=== PATIENT | female | born 1940 | race Caucasian/White ===

== ENCOUNTER → 2016-05-01 | Outpatient (CLI) | payer OTHER ==
[~2016-05-01] VITALS: Ht 152.4 cm; Wt 69.5 kg
[~2016-05-01] MED LIST: ALEVE220 MG PO; ARMOUR THYROID90 M1 PO; ASPIR-TRIN325 MG PO; ASPIRIN325 PO; B COMPLEX1 EAC1 PO; B-COMPLEX PLUS1 EACH PO; BACTROBAN CREAM30 G1 TOP; BIOTIN1 MG PO; BIOTIN10000 MC1 PO; BIOTIN2500 MCG PO; COLACE 100 MG100 MG PO; IBUPROFEN 200200 M1 PO; IRON325 PO; MIRALAX17 G1 PO; PERCOCET 10-321 EACH PO; PERCOCET PO; SENNA LAXATIVE1 EACH PO; STOOL SOFTENER100 MG PO; VITAMIN B-6100 MG PO; VITAMIN D1000 UNI1 PO; VITAMIN D31000 UNI2 PO; XARELTO10 MG PO; [UNRECOGNIZED DRUG - OTHER] PO
--- NOTE | ~2016-05-01 | HPC ---
[facility] [place] [address] PAIN MANAGEMENT CONSULTATION Name: LAYO AKERS Room #: REG [facility].#: [id number] Admission: 05/01/16 Attend Phys: Rajinder Ponce DO Discharge: Date of : 39 Report #: [id number] THIS REPORT FOR: //name// CC: Darcie Ponce The patient is a very pleasant 75-year-old female, being treated for lumbar radiculopathy secondary to spinal stenosis. She has had typically good relief with epidural injections. In 2015, she had had midline injection in February and again in December. Last injection was 01/17/2016. The patient returns to pain clinic today noting that those injections afforded good relief (specifically noting 50% relief ongoing), but states she still has more left lumbar radicular pain at this point. Right hip pain is little problematic. She notes pain is 6-7/10, deep aching sensation, exacerbated with walking and standing. PHYSICAL EXAMINATION: Shows a 75-year-old female, BMI is 29.9 kilograms per meter squared. Vital signs are stable, as noted in the EMR. Lower extremity strength is generally symmetric. She rises from the chair using armrest, modestly antalgic gait, actually does have positive straight leg raise on the right. We reviewed her diagnostic findings including MRI of the lumbar spine from March of 2014, noting L4-L5 to have grade 1 anterolisthesis with severe spinal stenosis and L5-S1 to have left-sided degenerative changes, and fairly severe right neural foraminal narrowing. ASSESSMENT: Symptomatic lumbar radiculopathy secondary to spinal stenosis. RECOMMENDATIONS: Repeat epidural injection under fluoroscopy today at L5-S1. Follow up simply as needed. At some point, if symptoms do not continue to get reasonable relief with the injection, we may consider referral for interventional therapy, i.e., decompressive laminectomy. PROCEDURE NOTE: Lumbar epidural injection under fluoroscopy. DESCRIPTION OF PROCEDURE: After both written and informed consent to include risk of spinal cord damage, increased pain, weakness and dural puncture, the patient was taken to the fluoroscopy suite, placed in the prone position. After sterile prep and drape, a skin wheal with lidocaine was raised. A 22-gauge epidural Tuohy needle was inserted in the midline at L5-S1 with good loss to resistance. Negative aspiration for cerebrospinal fluid or blood was noted. Then 1 mL of Omnipaque under biplanar fluoroscopy showed good spread within the epidural space. This was followed with 80 mg of triamcinolone plus 1 mL of 1.5% preservative-free Xylocaine, 0.5 mL Xylocaine was then injected to flush the [address] [address] PAIN MANAGEMENT CONSULTATION Name: LAYO AKERS Room #: REG [facility]#: [id number] Admission: 05/01/16 Attend Phys: Rajinder Ponce DO Discharge: Date of : 39 Report #: [id number] needle; it was removed. The patient was monitored for an appropriate period of time and discharged in good and stable condition. <ELECTRONICALLY SIGNED> By: Rajinder Ponce DO 05/04/16 1130 1034 1132 Rajinder Ponce DO /nt
[2016-05-01 13:08] VITALS: BP 143/83
== END | disposition home or self-care (01) ==
LOC: PAIN 07:05
DX: M54.16 Radiculopathy, lumbar region (principal); M43.16 Spondylolisthesis, lumbar region; M48.06 Spinal stenosis, lumbar region

== ENCOUNTER → 2016-07-23 | Outpatient (CLI) | payer OTHER ==
[~2016-07-23] VITALS: Ht 152.4 cm; Wt 68.5 kg
[~2016-07-23] MED LIST changes: +PERCOCET 5-3251 EACH PO
--- NOTE | ~2016-07-23 | HPC ---
[facility] [place] [address] PAIN MANAGEMENT CONSULTATION Name: LAYO AKERS Room #: REG [facility].#: [id number] Admission: 07/23/16 Attend Phys: Rajinder Ponce DO Discharge: Date of : 39 Report #: [id number] THIS REPORT FOR: //name// CC: Darcie Ponce HISTORY OF PRESENT ILLNESS: The patient is a 75-year-old female, who had a lumbar epidural injection at L5-S1 with significant improvement of baseline pain for several months. The patient notes the pain has recurred, right hip radiating down to the calf. MRI from March of 2014 notes severe spinal stenosis at L4-L5 with anterolisthesis and right neural foraminal stenosis at L5-S1. The patient notes subjective pain score as 9/10, exacerbated with walking and standing. He takes Advil over the counter. He has taken Percocet in the past, given to her prior to surgery. This has been quite some time ago. She used 1-2 Percocet with efficacy recently. PHYSICAL EXAMINATION: Shows a 75-year-old female, BMI is 29.5 kilograms per meter squared. Blood pressure 151/81, pulse 87, respirations are 14. Alert and oriented to person, place and time, judged to be a reasonable historian. Rises from the chair using armrest, modestly antalgic gait, tenderness over the right buttock. There are no discrete trigger points noted. Slight decrease in right plantar flexion and lower extremity flexion strength. Positive straight leg raise on the right, though somewhat nominal at 30 degrees. Patellar reflexes are symmetric. Achilles reflex is slightly diminished on the right. Skin integument is intact. MRI from March as noted above. ASSESSMENT: Symptomatic lumbar radiculopathy, secondary to spinal stenosis. RECOMMENDATIONS: Long discussion with the patient today about therapeutic options. Ultimately, given the fact she has had good yet transient relief with epidural injections, we have elected to refer the patient for consideration for definitive surgical intervention. The patient would prefer to have surgery at [facility] [place]. I will refer her to Dr. Indra Pereira. Today, we elected to proceed with epidural injection under fluoroscopy today to help attenuate her "9" on a 0-10 visual analog scale pain score. I have also taken the liberty of writing for Percocet 5/325, dispense 30 tablets 1 q. 4-6 hours as needed for pain. The patient cautioned about daytime somnolence, mental acuity changes, and constipation. Next, we ordered an MRI. Given that her prior MRI is little greater than 2 years old. ASSESSMENT: Symptomatic lumbar radiculopathy secondary to spinal stenosis in a pleasant 75-year-old female, who has had prior [place] [address] PAIN MANAGEMENT CONSULTATION Name: LAYO AKERS Room #: REG [facility]#: [id number] Admission: 07/23/16 Attend Phys: Rajinder Ponce DO Discharge: Date of : 39 Report #: [id number] injections, but pain is recurring, interfering with function. She has otherwise reasonably healthy. She should be a good surgical candidate. Comorbidities include only history of hypothyroidism. PROCEDURE: Lumbar epidural injection under fluoroscopy. DESCRIPTION OF PROCEDURE: After both written and informed consent to include risk of spinal cord damage, increased pain, weakness and dural puncture, the patient was taken to the fluoroscopy suite, placed in the prone position. After sterile prep and drape, a skin wheal with lidocaine was raised. A 22-gauge epidural Tuohy needle was inserted in the midline at L5-S1 with good loss to resistance. Negative aspiration for cerebrospinal fluid or blood was noted. Then 1 mL of Omnipaque under biplanar fluoroscopy showed good spread within the epidural space. This was followed with 80 mg of triamcinolone plus 1 mL of 1.5% preservative-free Xylocaine, 0.5 mL Xylocaine was then injected to flush the needle; it was removed. The patient was monitored for an appropriate period of time and discharged in good and stable condition. <ELECTRONICALLY SIGNED> By: Rajinder Ponce DO 07/27/16 0856 1204 1702 Rajinder Ponce DO /nt
[2016-07-23 10:55] VITALS: BP 151/81
== END | disposition home or self-care (01) ==
LOC: PAIN 06:41
DX: M54.16 Radiculopathy, lumbar region (principal); M48.06 Spinal stenosis, lumbar region; Z87.891 Personal history of nicotine dependence

== ENCOUNTER → 2016-10-26 | Outpatient (CLI) | payer OTHER ==
[~2016-10-26] VITALS: Ht 160 cm; Wt 68.4 kg
--- NOTE | ~2016-10-26 | HPC ---
[facility] [place] [address] PAIN MANAGEMENT CONSULTATION Name: LAYO AKERS Room #: REG [facility]..#: [id number] Admission: 10/26/16 Attend Phys: Rajinder Ponce DO Discharge: Date of : 39 Report #: [id number] THIS REPORT FOR: //name// CC: Darcie Ponce The patient is a delightful 76-year-old female that I have treated for symptomatic lumbar radiculopathy since 02/2015. She had 4 lumbar epidural injections from 02/2015 to 01/2016. She had 2 injections in 2017, 05/01/2016 and 07/23/2016. Last injection was a right of midline injection at L5-S1 with excellent near 100% improvement of pain. Pain has gradually begun to recur. The patient had a garage sale last week, for the prior 3 weeks she had been doing fair bit of physical activity in the garage, increasing activity with exacerbation of pain. She notes the pain was quite problematic on the right, they graded a 9 on a VAS when she made the appointment. She notes, however, that pain is actually fairly nominal at present, rates it 2 on a VAS. It is right low back, buttock, and leg; exacerbated with standing, walking and bending. She has taken perhaps 3 Percocet 5/325 in the past 3 weeks, prior she had not taken any for several months. She has been using Advil [id number] 200 mg tablets, 2 every morning with reasonable efficacy in the past several weeks. Presently again, she notes pain is fairly nominal. PHYSICAL EXAMINATION: GENERAL: Shows 76-year-old female, BMI is 26.7 kilograms per meter square. VITAL SIGNS: Blood pressure 131/92, pulse 72, respirations 16. MUSCULOSKELETAL: Rises from chair easily. Gait is tandem. Lower extremity strength is preserved. Lower extremity strength is symmetric. Straight leg raise is negative. Patellar and Achilles reflexes are generally preserved. IMAGING: Reviewed her MRI from 03/14/2014. The patient does have severe right neural foraminal narrowing secondary to facet arthropathy at L5-S1. She has a grade 1 anterolisthesis at L4-L5 with severe central stenosis. RECOMMENDATION: Discussion with the patient today about therapeutic options. I had suggested she contact a neurosurgeon at last visit. I still think that would be reasonable if pain becomes problematic again. However, it really seems to be fairly nominal at present. Given that she is doing well with simply a nonsteroidal anti-inflammatory, I would recommend that she continue activity. We talked about range of motion and strength exercises. I will be happy to see her as-needed for consideration for lumbar epidural injection if lumbar radicular symptoms recur, primarily in that right leg. If single injection does not afford adequate relief, we may want to get a newer MRI and refer to Neurosurgery. Again, this does not necessarily mean she will have surgery, but I do want to make her to be aware of Neurosurgery and neurosurgical options. [address] [address] PAIN MANAGEMENT CONSULTATION Name: LAYO AKERS Room #: REG [facility]#: [id number] Admission: 10/26/16 Attend Phys: Rajinder Ponce DO Discharge: Date of : 39 Report #: [id number] Discharged in good and stable condition. Fortunately, no interventional therapies required at this time. By: [id number] Rajinder Ponce DO /nt
[2016-10-26 15:13] VITALS: BP 131/92
== END | disposition home or self-care (01) ==
LOC: PAIN 08-06 08:43
DX: M54.16 Radiculopathy, lumbar region (principal); M12.88 Other specific arthropathies, not elsewhere classified, other specified site; Z87.891 Personal history of nicotine dependence

== ENCOUNTER → 2016-12-21 | Outpatient (CLI) | payer OTHER ==
[~2016-12-21] VITALS: Ht 152.4 cm; Wt 66.2 kg
--- NOTE | ~2016-12-21 | HPC ---
[facility] [place] [address] PAIN MANAGEMENT CONSULTATION Name: LAYO AKERS [facility] [id number] Admission: 12/21/16 Attend Phys: Rajinder Ponce DO Discharge: Date of : 39 Report #: [id number] THIS REPORT FOR: //name// CC: Darcie Ponce The patient is a 76-year-old female, prior seen in the pain clinic on 10/26/2016. The patient has had good results with epidural injections in the past, prior injection in April and July of this year helped with radicular pain. At last visit, we reviewed her diagnostic findings, suggested she contact her neurosurgeon. She returns to pain clinic today noting pain has begun to recur. Pain is in the right hip, posterior side. States it does impact activities of daily living. She has fairly classic neurogenic claudication with ambulation. MRI did note spinal stenosis. We had again recommend she follow up with neurosurgery. I gave her contact information for Dr. Indra Pereira as she states she would like to have her surgery at [facility]. I reviewed the prior MR findings from 2014, again at that time she did have critical spinal stenosis at L4-L5. We have elected to Repeat MRI, proceed with epidural injection today and have her follow up with Dr. Pereira for consideration for decompressive laminectomy. ASSESSMENT: Symptomatic lumbar radiculopathy secondary to spinal stenosis with positive neural tensioning symptoms and neurogenic claudication. PROCEDURE: Lumbar epidural injection under fluoroscopy. PROCEDURE NOTE: After both written and informed consent to include risk of spinal cord damage, increased pain, weakness and dural puncture, the patient was taken to the fluoroscopy suite, placed in the prone position. After sterile prep and drape, a skin wheal with lidocaine was raised. A 22-gauge epidural Tuohy needle was inserted in the midline at L5-S1 with good loss to resistance. Negative aspiration for cerebrospinal fluid or blood was noted. Then 1 mL of Omnipaque under biplanar fluoroscopy showed good spread within the epidural space. This was followed with 80 mg of triamcinolone plus 1 mL of 1.5% preservative-free Xylocaine, 0.5 mL Xylocaine was then injected to flush the needle; it was removed. The patient was monitored for an appropriate period of time and discharged in good and stable condition. <ELECTRONICALLY SIGNED> By: Rajinder Ponce DO 12/28/16 1401 1657 2101 Rajinder Ponce DO /nt
[2016-12-21 12:51] VITALS: BP 152/76
== END | disposition home or self-care (01) ==
LOC: PAIN 06:20
DX: M54.16 Radiculopathy, lumbar region (principal); M48.062 Spinal stenosis, lumbar region with neurogenic claudication; Z98.890 Other specified postprocedural states; Z87.891 Personal history of nicotine dependence

== ENCOUNTER → 2016-12-29 | Outpatient (CLI) | payer OTHER | LOC: MRI 10:38 | DX: M47.896 Other spondylosis, lumbar region (principal); M48.061 Spinal stenosis, lumbar region without neurogenic claudication ==

== ENCOUNTER → 2017-04-09 | Outpatient (CLI) | payer OTHER ==
[~2017-04-09] VITALS: Ht 152.4 cm; Wt 65.7 kg
--- NOTE | ~2017-04-09 | HPC ---
[facility] [place] [address] PAIN MANAGEMENT CONSULTATION Name: LAYO AEKRS [facility] [id number] Admission: 04/09/17 Attend Phys: Rajinder Ponce DO Discharge: Date of : 39 Report #: [id number] THIS REPORT FOR: //name// CC: Darcie Ponce DATE OF SERVICE: 04/09/2017 The patient is a 76-year-old female being treated for lumbar radiculopathy secondary to spinal stenosis. Prior seen in the Pain Clinic back in December. We did an epidural injection at that time. I referred her to Dr. Indra Pereira at [facility] for consideration for decompressive laminectomy. She has fairly significant lumbar stenosis, greatest at L1-L2 and at L4-L5. There are severe facet arthrosis and grade 1 anterolisthesis at L4-L5 along with some ligamentum flavum hypertrophy. Canals narrowed to 6.5 mm. The patient did see Dr. Pereira, but has a followup appointment with another neurosurgeon in that group. By reports, the patient had flexion and extension x-rays, which may have showed some malalignment and movement with flexion and extension and I believe they are now discussing consideration for a lumbar fusion. She notes that the prior epidural injection afforded good relief, albeit transient. The patient noted she had 60% relief for 2 months and pain has begun to recur. PHYSICAL EXAMINATION: Shows 76-year-old female, BMI is 28.3 kg/m2, blood pressure is modestly elevated at 147/90, pulse 89, respirations are 20. Rises from chair using armrest. Antalgic gait favoring the right leg. Positive straight leg raise on the right with slight decreased right plantar flexion, dorsiflexion, and lower extremity extension. I did review the MRI from 12/29/2016 noting grade 1 anterolisthesis at L4-L5 and has noted significant stenosis down to 6.5 mm. ASSESSMENT: Symptomatic lumbar radiculopathy secondary to spinal stenosis. RECOMMENDATION: 1. Repeat epidural injection at L5-S1. 2. Chronic axial back pain and complex medication management. We will renew prescription for Percocet 5/325, dispense 40 tablets, one tablet q. 4-6 hours. 3. Follow up simply as needed. PROCEDURE: Lumbar epidural injection under fluoroscopy. PROCEDURE NOTE: After both written and informed consent to include risk of spinal cord damage, increased pain, weakness and dural puncture, the patient was taken to the fluoroscopy suite, placed in the prone position. After sterile [address] [address] PAIN MANAGEMENT CONSULTATION Name: LAYO AKERS Room #: REG [facility] Rod#: [id number] Admission: 04/09/17 Attend Phys: Rajinder Ponce DO Discharge: Date of : 39 Report #: [id number] prep and drape, a skin wheal with lidocaine was raised. A 22-gauge epidural Tuohy needle was inserted in the midline at L5-S1 with good loss to resistance. Negative aspiration for cerebrospinal fluid or blood was noted. Then 1 mL of Omnipaque under biplanar fluoroscopy showed good spread within the epidural space. This was followed with 80 mg of triamcinolone plus 1 mL of 1.5% preservative-free Xylocaine, 0.5 mL Xylocaine was then injected to flush the needle; it was removed. The patient was monitored for an appropriate period of time and discharged in good and stable condition. <ELECTRONICALLY SIGNED> By: Rajinder Ponce DO 04/12/17 0925 1223 1733 Rajinder Ponce DO /nt
[2017-04-09 10:47] VITALS: BP 147/98
== END | disposition home or self-care (01) ==
LOC: PAIN 07:11
DX: M54.16 Radiculopathy, lumbar region (principal); M48.061 Spinal stenosis, lumbar region without neurogenic claudication; G89.29 Other chronic pain; Z87.891 Personal history of nicotine dependence

== ENCOUNTER → 2017-07-02 | Outpatient (CLI) | payer OTHER ==
[~2017-07-02] VITALS: Ht 152.4 cm; Wt 64.9 kg
--- NOTE | ~2017-07-02 | HPC ---
[facility] [address] [address] [place] [address] PAIN MANAGEMENT CONSULTATION Name: AKERSLAYO ROJASNE Room #: REG [facility] Loretta.#: [id number] Admission: 07/02/17 Attend Phys: Rajinder Ponce DO Discharge: Date of : 39 Report #: [id number] THIS REPORT FOR: //name// CC: Darcie Ponce The patient is a very pleasant 76-year-old female typically treated for lumbar radiculopathy secondary to spinal stenosis with significant neurogenic claudication. She has done well with occasional epidural injections, last injection was 04/09/2017. Prior, she had had 4 lumbar epidural injections in 2016, April, July, October and December. I have referred the patient to [facility] to see Dr. Indra Pereira for consideration for decompression of her fairly significant spinal stenosis. She does have anterolisthesis about 6.5 mm at L4-L5. Canal is narrowed to about 6-6.5 mm at this level as well. They had done flexion and extension x-rays, which showed some malalignment and had suggested that if she needed surgery, they would recommend a lumbar decompression and fusion. They also said in the same breath that surgery was not a good option at this time for the patient and they would prefer that she continue with conservative therapies. She does present to the pain clinic today noting pain is actually fairly nominal about 2 on a VAS, but it had been quite problematic earlier in the week. She notes the pain is exacerbated with standing, walking and bending. Pain is primarily in the low back. She is status post right total hip arthroplasty in 09/2015 and left total hip arthroplasty in 10/2014. She has rehabbed both of those but still feels that she has a little weakness on the right side. She has some classic right L4 radicular pain symptoms. PHYSICAL EXAMINATION: Shows a pleasant 76-year-old female, BMI is 28.3 kilograms per meter squared. Vital signs show modest hypertension at 147/98, pulse wnl, respirations 20. She is alert and oriented to person, place and time, judged to be a reasonable historian. Rises from chair using armrest. Gait is generally tandem, her gait belies her total hip arthroplasties. She does have some diffuse tenderness across the low back, modestly positive straight leg raise on the right with slight decreased right patellar reflex compared to left. By history, she has significant neurogenic claudication with activity, with pain in the right L4 radicular pattern. She again does have fairly significant stenosis and spondylosis at this level. ASSESSMENT: Symptomatic lumbar radiculopathy secondary to spinal stenosis. [address] [address] PAIN MANAGEMENT CONSULTATION Name: DELPHINELAYO YONATHAN Room #: REG [facility] Rod#: [id number] Admission: 07/02/17 Attend Phys: Rajinder Ponce DO Discharge: Date of : 39 Report #: [id number] RECOMMENDATION: Long discussion with the patient today about therapeutic options. We have elected to simply repeat epidural injection today below the spondylolisthesis (LESI at L5-S1). The patient will simply follow up on an as needed basis. Again, if she does well with this injection, we talked at length about the risks of accumulated steroid use and osteoporosis. She does not have any metabolic issues such as diabetes. Given that she gets good relief, I agree that postponing decompressive laminectomy and fusion is reasonable. Hopefully, this will not be an inevitable surgery if we can continue to keep her functional. I told her I am leaving the practice and she will need to follow up with one of the pain clinic physicians. She has several friends who have seen Dr. Ryland Ponce and she was enthusiastic to see my "brother." ASSESSMENT: Symptomatic lumbar radiculopathy secondary to spinal stenosis. PROCEDURE: Lumbar epidural injection under fluoroscopy. PROCEDURE NOTE: After both written and informed consent to include risk of spinal cord damage, increased pain, weakness and dural puncture, the patient was taken to the fluoroscopy suite, placed in the prone position. After sterile prep and drape, a skin wheal with lidocaine was raised. A 22-gauge epidural Tuohy needle was inserted in the midline at L5-S1 with good loss to resistance. Negative aspiration for cerebrospinal fluid or blood was noted. Then 1 mL of Omnipaque under biplanar fluoroscopy showed good spread within the epidural space. This was followed with 80 mg of triamcinolone plus 1 mL of 1.5% preservative-free Xylocaine, 0.5 mL Xylocaine was then injected to flush the needle; it was removed. The patient was monitored for an appropriate period of time and discharged in good and stable condition. <ELECTRONICALLY SIGNED> By: Rajinder Ponce DO 07/07/17 0725 1524 00 Rajinder Ponce DO /nt
[2017-07-02 14:03] VITALS: BP 149/84
== END | disposition home or self-care (01) ==
LOC: PAIN 08:19
DX: M48.062 Spinal stenosis, lumbar region with neurogenic claudication (principal); M54.16 Radiculopathy, lumbar region; G89.29 Other chronic pain; Z96.641 Presence of right artificial hip joint; Z98.890 Other specified postprocedural states; Z87.891 Personal history of nicotine dependence; Z88.8 Allergy status to other drugs, medicaments and biological substances; Z79.891 Long term (current) use of opiate analgesic

== ENCOUNTER → 2017-08-20 | Outpatient (CLI) | payer OTHER ==
[~2017-08-20] VITALS: Ht 152.4 cm; Wt 60.0 kg
--- NOTE | ~2017-08-20 | HPC ---
[facility] [address] [address] PAIN MANAGEMENT CONSULTATION Name: LAYO AKERS [id number] Admission: 08/20/17 Attend Phys: Rajinder Ponce DO Discharge: Date of : 39 Report #: [id number] THIS REPORT FOR: //name// CC: Darcie Ponce DATE OF SERVICE: 08/20/2017 PAIN CLINIC PROCEDURE HISTORY OF PRESENT ILLNESS: The patient is a pleasant 76-year-old female treated for symptomatic lumbar radiculopathy secondary to spinal stenosis. She is status post bilateral total hip arthroplasties. She has ongoing stenosis. MRI shows AP diameter at L4-L5 down about 6.5 mm. Unfortunately, flexion, extension x-rays do show some malalignment. Surgery was recommended as a fusion. The patient would prefer conservative therapy. She has done well with occasional epidural injections. She has had epidural injections in April and in June of this year, always with good improvement (last injection the patient reports 70% for about a month with gradual return of pain). He returns to pain clinic today noting subjective pain score is 6 on a VAS. Pain is primarily low back and right leg. Exacerbated with standing, walking, leaning forward. Some relief with Advil and rest. PHYSICAL EXAMINATION: Otherwise shows BMI 25.8 kilograms per meter squared. Blood pressure is stable. The patient is alert and oriented to person, place, and time, judged to be a reasonable historian. Rises from chair using armrest, modestly antalgic gait. Right leg is a little weaker than the left. Positive straight leg raise on the right. ASSESSMENT: Symptomatic lumbar radiculopathy secondary to spinal stenosis. The patient with component of neuropathic pain, status post bilateral total hip arthroplasties. RECOMMENDATION: Repeat epidural injection under fluoroscopy today. Follow up simply as needed. PROCEDURE: Lumbar epidural injection under fluoroscopy. PROCEDURE NOTE: After both written and informed consent to include risk of spinal cord damage, increased pain, weakness and dural puncture, the patient was taken to the fluoroscopy suite, placed in the prone position. After sterile prep and drape, a skin wheal with lidocaine was raised. A 22-gauge epidural Tuohy needle was inserted in the midline at L5-S1 with good loss to resistance. Negative aspiration for cerebrospinal fluid or blood was noted. Then 1 mL of Omnipaque under biplanar fluoroscopy showed good spread within the epidural [address] [address] PAIN MANAGEMENT CONSULTATION Name: LAYO AKERS YONATHAN Room #: REG CLI Rdo#: [id number] Admission: 08/20/17 Attend Phys: Rajinder Ponce DO Discharge: Date of : 39 Report #: [id number]. This was followed with 80 mg of triamcinolone plus 1 mL of 1.5% preservative-free Xylocaine, 0.5 mL Xylocaine was then injected to flush the needle; it was removed. The patient was monitored for an appropriate period of time and discharged in good and stable condition. <ELECTRONICALLY SIGNED> By: Rajinder Ponce DO 08/22/17 1135 [id number] [id number] Rajinder Ponce DO /nt
[2017-08-20 12:50] VITALS: BP 150/74
== END | disposition home or self-care (01) ==
LOC: PAIN 08:33
DX: M51.16 Intervertebral disc disorders with radiculopathy, lumbar region (principal); G62.9 Polyneuropathy, unspecified; Z87.891 Personal history of nicotine dependence

== ENCOUNTER → 2017-12-28 | Outpatient (CLI) | payer OTHER ==
[~2017-12-28] VITALS: Ht 152.4 cm; Wt 65.3 kg
--- NOTE | ~2017-12-28 | HPC ---
[facility] [place] [address] PAIN MANAGEMENT CONSULTATION Name: LAYO AKERS Room #: REG [facility].#: [id number] Admission: 12/28/17 Attend Phys: Ryland Ponce DO Discharge: Date of : 39 Report #: [id number] THIS REPORT FOR: //name// CC: Darcie Ponce DATE OF SERVICE: 12/28/2017 CHIEF COMPLAINT: Low back pain, right lower extremity pain with paresthesias. HISTORY OF PRESENT ILLNESS: As you know, the patient is a 77-year-old female who returns today in followup visit with continued low back pain, right lower extremity pain with paresthesias. The patient has undergone epidural injections with Dr. Rajinder Ponce over the years and has done well with pain control. She was last seen in our clinic on 08/20/2017, where she underwent epidural injection under fluoroscopic guidance to address lumbar radicular symptoms. She reports 60% improvement in overall pain, lasting for nearly 3-1/2 months. She returns today in followup visit with low back pain, right buttock and posterolateral thigh pain radiating all the way to the foot. She indicates pain is chronic, aching in sensation, places current pain score 4/10. She denies new injury, new trauma or any changes in medical history since our last visit. She returns today to undergo epidural injection under fluoroscopic guidance in hopes of improving pain further. ALLERGIES: CEPHALEXIN, CIPROFLOXACIN AND CEFAZOLIN. CURRENT MEDICATIONS: Percocet, ibuprofen, Biotin, vitamin B6, MiraLax, cholecalciferol and [place] Thyroid. SOCIAL HISTORY: The patient denies tobacco, alcohol, IV or illicit drug use. She is unaccompanied today. IMAGING: No new imaging available. PQRS: The patient has osteoarthritis, bilateral hips and low back. No rheumatoid arthritis. She is placing pain intensity of 4/10. She is not a fall risk, has not had a fall in the last 3 months. She is not on blood thinners, but is treated for hypertension. She is not on chronic opioids. She has a low opiate addiction potential. FUNCTIONAL ASSESSMENT: Pain impact tool 38/70, indicating moderate interference of daily activities secondary to pain. PHYSICAL EXAMINATION: VITAL SIGNS: Blood pressure 153/84, pulse 82 and respiratory rate 16 and unlabored. The patient is 97% on room air. Height 5 feet tall, weight [address] [place] [address] PAIN MANAGEMENT CONSULTATION Name: LAYO AKESR Room #: REG CLI [facility]#: [id number] Admission: 12/28/17 Attend Phys: Ryland Ponce DO Discharge: Date of : 39 Report #: [id number] pounds and BMI calculated 28.1. GENERAL: Well-developed, well-nourished and well-hydrated 77-year-old female appearing stated age, placing current pain score 4/10. HEENT: Normocephalic, atraumatic. Pupils equal, round and reactive to light. EXTREMITIES: Show no clubbing, no cyanosis, no edema. MUSCULOSKELETAL: Lower extremity strength appears symmetrical, 5/5. She is intact to light touch from L1 through S2 dermatomes. Seated straight leg raise negative, supine straight leg raising positive right. Tatum's test negative. The patient does have difficulty rising from a seated position. She uses the arms of the chair to rise. She has a modestly antalgic gait, favoring right lower extremity. ASSESSMENT: 1. Lumbar radiculopathy. 2. Spinal stenosis, lumbar spine. 3. Displacement of lumbar intervertebral disk with radiculopathy. 4. Lumbosacral spondylosis with radiculopathy. 5. Lumbar degeneration. 6. Chronic intractable pain. PLAN: 1. The patient returns today in followup visit requesting to undergo epidural injection under fluoroscopic guidance. She reports a 65% improvement in overall pain with previous epidural injection, lasting for nearly 3-1/2 months. She returns today in followup visit, denying any injury or trauma that led to recurrence of symptoms. She returns requesting an epidural injection under fluoroscopic guidance. The patient was advised on the risks and benefits of a lumbar epidural injection. These risks include but are not necessarily limited to bleeding, bruising, infection, worsening of pain, no relief of pain, also risk of temporary or permanent muscle weakness, temporary or permanent nerve damage, possible paralysis and . The patient states understood and wished to proceed. 2. No medication changes made at today's visit. The patient to continue current medical therapy as previously prescribed. 3. We will see the patient back in followup visit on an as-needed basis for the next in the series of epidural injections. PROCEDURE NOTE PROCEDURE: L5-S1 right paramedian epidural steroid injection under fluoroscopic guidance. DESCRIPTION OF PROCEDURE: After obtaining written consent, the patient was [address] [address] PAIN MANAGEMENT CONSULTATION Name: LAYO AKERS Room #: REG [facility]#: [id number] Admission: 12/28/17 Attend Phys: Ryland Ponce DO Discharge: Date of : 39 Report #: [id number] taken back to fluoroscopy suite, placed in prone position with pillow under abdomen to decrease lumbar lordosis. Skin overlying the lumbosacral area then prepped and draped in aseptic fashion. The L5-S1 vertebral interspace identified by AP fluoroscopy. Skin and subcutaneous tissue overlying target site of injection was anesthetized with 3 mL of 1% lidocaine. A 20-gauge 3-1/2 inch Tuohy needle advanced under fluoroscopic guidance towards the epidural space using right paramedian approach. Epidural space identified using loss of resistance to air technique. After negative aspiration for heme or cerebrospinal fluid, 1 mL of Isovue injected and lumbar epidurogram confirmed using both AP and lateral fluoroscopy. After negative aspiration for heme or cerebrospinal fluid, 5 mL of a solution containing 2 mL of 40 mg per mL, 80 mg total triamcinolone, 3 mL of lidocaine 1% injected slowly. Needle retracted fci, flushed with 1 mL of 1% lidocaine and removed. Sterile bandage placed over the injection site. No new motor deficits present in the lower extremity following the procedure. The patient tolerated the procedure well, carefully escorted to recovery room in stable condition. No apparent complications. After meeting discharge criteria, the patient discharged home. <ELECTRONICALLY SIGNED> By: Ryland Ponce DO 01/04/18 1109 1231 [id number] Ryland Ponce DO /nt
[2017-12-28 09:00] VITALS: BP 153/84
== END | disposition home or self-care (01) ==
LOC: PAIN 07:59
DX: M51.16 Intervertebral disc disorders with radiculopathy, lumbar region (principal); M48.061 Spinal stenosis, lumbar region without neurogenic claudication; M47.27 Other spondylosis with radiculopathy, lumbosacral region; G89.29 Other chronic pain; M19.90 Unspecified osteoarthritis, unspecified site; Z88.8 Allergy status to other drugs, medicaments and biological substances; Z79.899 Other long term (current) drug therapy; Z87.891 Personal history of nicotine dependence

== ENCOUNTER → 2018-04-05 | Outpatient (CLI) | payer OTHER ==
[~2018-04-05] VITALS: Ht 152.4 cm; Wt 65.7 kg
[2018-04-05 10:35] VITALS: BP 147/88
--- NOTE | 2018-04-05 10:45 | NUR ---
Pain Clinic Assessment: 1. History of Osteoarthritis: HIPS SPINE History of Rheumatoid Arthritis: Not Applicable 2. Height: 5 ft. 0 in. 152.4 cm. Weight: 144.8 lb. oz. 65.681 kg. Patient's BMI: 28.3 3. Vital Signs: BP: 147/88 Pulse: 85 Resp: 16 Temp: 02 Sat: 98 ECG Mon: 4. Pain Intensity: 4 5. Fall Risk: Dizziness: N Needs help standing or walking: N Fallen in the last 3 months: N Fall risk comments: 6. Patient on Blood Thinner: None 7. History of Hypertension: Y 8. Opioid Therapy greater than 6 weeks: N Opiate Contract Signed: 9. Risk Assessment Tool Provided: 0-LOW RISK 10. Functional Assessment Tool: 11. Recreational Drug Use: Never Drug Type: Tobacco Use: Former Smoker Tobacco Type: Amount or Packs/day: How Many Years: Alcohol Use: Yes Frequency: Monthly Quant: I A MONTH PER PT
--- NOTE | 2018-04-08 07:41 | HPC ---
[facility] [address] [place] [address] PAIN MANAGEMENT CONSULTATION Name: LAYO AKERS Room #: REG [facility]..#: [id number] Admission: 04/05/18 ������������������ Attend Phys: Ryland Ponce DO Discharge: ������������������ Date of : 39 Report #: [id number] THIS REPORT FOR: //name// CC: Darcie Ponce DATE OF SERVICE: 04/05/2018 CHIEF COMPLAINT: Low back pain, right lower extremity pain with paresthesias. HISTORY OF PRESENT ILLNESS: As you know, the patient is a 77-year-old female who returns today in followup visit with recurrent low back pain, right lower extremity pain with paresthesias. She reports pain today at level of 4/10. The patient underwent lumbar epidural injection on 12/28/2017, reporting 80% improvement in overall pain until just recently where she had had a slow and progressive return of symptoms. She has been advised to return to undergo next in the series of lumbar epidural injections under fluoroscopic guidance. The patient denies injury or trauma that may have led to symptom recurrence. She returns today in followup visit requesting to undergo epidural injection under fluoroscopic guidance in hopes of building on success of previous intervention. ALLERGIES: CEPHALEXIN, CIPROFLOXACIN, CEFAZOLIN. CURRENT MEDICATIONS: Percocet 5/325 one tab p.o. q.8h. p.r.n. for pain, ibuprofen 200 mg 2 tabs twice a day, biotin 1000 mcg per day, vitamin B6 100 mg per day, MiraLax 17 grams per day, cholecalciferol 1000 units per day, [place] Thyroid 90 mg per day. SOCIAL HISTORY: The patient denies tobacco, alcohol, IV or illicit drug use. She is unaccompanied today. IMAGING: There is no new imaging available. PQRS: The patient has osteoarthritic changes of the lumbar spine, bilateral hips. No rheumatoid arthritis. She is placing pain intensity today at 4/10. She is not a fall risk, has not had a fall in the last 3 months. She is not on blood thinners. She has history of hypertension. She is on chronic opioids and per our assessment tool has a low risk of opioid addiction. She is placing pain impact at 38/70 indicating moderate interference of daily activities secondary to pain. PHYSICAL EXAMINATION: VITAL SIGNS: Blood pressure 147/88, pulse is 85, respiratory rate 16 and unlabored. The patient is 98% on room air. Height 5 feet tall, weight 144.8 pounds, BMI calculated 28.3[place] [address] PAIN MANAGEMENT CONSULTATION Name: LAYO AKERS Room #: REG [facility]#: [id number] Admission: 04/05/18 ������������������ Attend Phys: Ryland Ponce DO Discharge: ������������������ Date of : 39 Report #: [id number] GENERAL: Well-developed, well-nourished, well-hydrated 77-year-old female appearing stated age, placing current pain score at 4/10. HEENT: Normocephalic, atraumatic. Pupils equal, round, reactive to light. Extraocular muscles are intact. Sclerae nonicteric without injection. NEUROLOGIC: Cranial nerves 2-12 grossly intact. Speech fluent. EXTREMITIES: Show no clubbing, no cyanosis, no edema. MUSCULOSKELETAL: Lower extremity strength appears symmetrical 5/5, intact to light touch from L1 through S2 dermatomes. Seated straight leg raising negative. Supine straight leg raising positive right at approximately 60 degrees. Tatum's test negative. Modified Gaenslen's is positive for axial low back pain. Gait mildly antalgic favoring right lower extremity over left. ASSESSMENT: 1. Symptomatic lumbar radiculopathy. 2. Spinal stenosis of lumbar spine. 3. Displacement of lumbar intervertebral disk with radiculopathy. 4. Lumbosacral spondylosis with radiculopathy. 5. Lumbar degeneration. 6. Chronic intractable pain. PLAN: 1. The patient returns today in followup visit requesting to undergo next in the series of epidural injections. As you are aware, the patient received 80% improvement in overall pain with previous epidural injection. She has been in her normal state of health until just recently where her pain began to return. No inciting injury or trauma. She returns today requesting to undergo this next in the series of epidural injections in hopes of improving pain. 2. No medication changes made at today's visit. The patient will continue current medical therapy as previously prescribed. 3. We will see the patient back in followup visit on an as needed basis for the next in the series of lumbar epidural injections. ��������������������������������������������� <ELECTRONICALLY SIGNED> ���������������������������������������� By: Ryland Ponce DO ��������������������������������������������� 04/08/18 0741 0823 41 Ryland Ponce DO /nt
--- NOTE | 2018-04-08 07:41 | P ---
[facility] [address] PROCEDURE REPORT Name: LAYO AKERS Room #: REG [facility].#: [id number] Admission: 04/05/18 ������������������ Attend Phys: Ryland Ponce DO Discharge: ������������������ Date of : 39 Report #: [id number] THIS REPORT FOR: //name// CC: Darcie Ponce DATE OF SERVICE: 04/05/2018 DESCRIPTION OF PROCEDURE: L5-S1 right paramedian epidural steroid injection under fluoroscopic guidance. After obtaining written consent, the patient was taken back to fluoroscopy suite, placed in prone position with pillow under abdomen to decrease lumbar lordosis. Skin overlying lumbosacral area then prepped and draped in aseptic fashion. The L5-S1 vertebral interspace was identified by AP fluoroscopy. Skin and subcutaneous tissue overlying target site of injection was anesthetized with 3 mL of 1% lidocaine. A 20-gauge 3-1/2-inch Tuohy needle advanced under fluoroscopic guidance towards the epidural space using a right paramedian approach. Epidural space identified using loss of resistance to air technique. After negative aspiration for heme or cerebrospinal fluid, 1 mL of Omnipaque injected. Lumbar epidurogram confirmed using both AP and lateral fluoroscopy. After negative aspiration for heme or cerebrospinal fluid, 5 mL of a solution containing 2 mL 40 mg per mL, 80 mg total triamcinolone, 3 mL of lidocaine 1% injected slowly. Needle retracted prison, flushed with 1 mL of 1% lidocaine and removed. Sterile bandage placed over injection site. No new motor deficits present in the lower extremities following procedure. The patient tolerated procedure well, carefully escorted to recovery room in stable condition. No apparent complications. After meeting discharge criteria, the patient discharged home. ��������������������������������������������� <ELECTRONICALLY SIGNED> ���������������������������������������� By: Ryland Ponce DO ��������������������������������������������� 04/08/18 0741 0823 1944 Ryland Ponce DO /nt
== END | disposition home or self-care (01) ==
LOC: PAIN 06:53
DX: M51.16 Intervertebral disc disorders with radiculopathy, lumbar region (principal); M48.061 Spinal stenosis, lumbar region without neurogenic claudication; M47.27 Other spondylosis with radiculopathy, lumbosacral region; G89.29 Other chronic pain; M16.0 Bilateral primary osteoarthritis of hip; I10 Essential (primary) hypertension; Z79.891 Long term (current) use of opiate analgesic; Z88.8 Allergy status to other drugs, medicaments and biological substances; Z79.899 Other long term (current) drug therapy; Z98.890 Other specified postprocedural states; Z87.891 Personal history of nicotine dependence

== ENCOUNTER → 2018-06-08 | Outpatient (CLI) | payer OTHER ==
[~2018-06-08] VITALS: Ht 152.4 cm; Wt 64.7 kg
--- NOTE | ~2018-06-08 | HPC ---
[facility] [place] [address] PAIN MANAGEMENT CONSULTATION Name: LAYO AKERS Room #: REG [facility].#: [id number] Admission: 06/08/18 ������������������ Attend Phys: Ryland Ponce DO Discharge: ������������������ Date of : 39 Report #: [id number] THIS REPORT FOR: //name// CC: Darcie Ponce DATE OF SERVICE: 06/08/2018 REFERRING PHYSICIAN: Darcie Edwards M.D. CHIEF COMPLAINT: Low back pain, right lower extremity pain with paresthesias. HISTORY OF PRESENT ILLNESS: As you know, the patient is a 77-year-old female who returns today in followup visit to undergo epidural injection under fluoroscopic guidance. She last was in our clinic on 12/28/2017 undergoing an epidural injection at that visit, which provided 90% improvement in overall pain lasting for nearly 10 weeks. She returns today in followup visit with slow and progressive return of low back pain, right lower extremity pain for which she places pain at 7/10. She states pain is exacerbated with walking and standing, improves with medications, rest and seated position. She returns today requesting next in the series of lumbar epidural injections. She is denying any injury or trauma that may have led to symptom reoccurrence. ALLERGIES: CEPHALEXIN, CEFAZOLIN and CIPROFLOXACIN. CURRENT MEDICATIONS: Oxycodone, ibuprofen, biotin, vitamin B6, MiraLax, cholecalciferol and [place] Thyroid. SOCIAL HISTORY: The patient denies tobacco, alcohol or IV or illicit drug use. She is retired, retired years ago and unaccompanied today. IMAGING DATA: There is no new imaging available. PQRS: The patient has no known osteoarthritic changes of the lumbar spine, bilateral hips. No rheumatoid arthritis. She is placing pain intensity at 7/10. She is not a fall risk, has not had a fall in the last 3 months. She is not on blood thinners but is treated for hypertension. She is not on any chronic opioids and has a low opioid addiction potential. She is placing pain impact score 38/70 indicating moderate interference of daily activities secondary to pain. PHYSICAL EXAMINATION: VITAL SIGNS: Blood pressure 140/78, pulse 84 and respiratory rate 16 and unlabored. The patient is 95% on room air. Height 5 feet tall, weight 142.6 pounds and BMI [place] 27.8[place] [address] PAIN MANAGEMENT CONSULTATION Name: LAYO AKERS Room #: REG CL Rod#: [id number] Admission: 06/08/18 ������������������ Attend Phys: Ryland Ponce DO Discharge: ������������������ Date of : 39 Report #: [id number] GENERAL: Well-developed, well-nourished and well-hydrated 77-year-old female appearing stated age. She is placing pain score today 7/10. HEENT: Normocephalic and atraumatic. Pupils equal, round and reactive to light. EXTREMITIES: Show no clubbing, no cyanosis and no edema. MUSCULOSKELETAL: Lower extremity strength appears symmetrical 5/5. Seated straight leg raising positive on the right. Supine straight leg raising positive on the right. Gait mildly antalgic favoring right lower extremity over left. She is not utilizing any type of ambulatory device. She is intact to light touch from L1 through S2 dermatomes. Muscle bulk is symmetrical when comparing left lower extremity to right. ASSESSMENT: 1. Symptomatic lumbar radiculopathy. 2. Spinal stenosis of the lumbar spine. 3. Displacement of lumbar intervertebral disk with radiculopathy. 4. Lumbosacral spondylosis with radiculopathy. 5. Lumbar degeneration. 6. Chronic intractable pain. PLAN: 1. The patient returns today in followup visit requesting to undergo next in the series of epidural injections under fluoroscopic guidance. As you are aware, the patient received excellent benefit with the previous epidural injections, the most recent giving 90% improvement in overall pain lasting for nearly 10 weeks. She returns today in followup visit requesting to undergo this procedure in hopes of improving pain. She has been advised risks and benefits, states understood and wished to proceed. 2. No medication changes made at today's visit. The patient will continue current medical therapy as previously prescribed. 3. We will see the patient back in followup visit on an as needed basis for possible next in the series of lumbar epidural injections. PROCEDURE NOTE DESCRIPTION OF PROCEDURE: L5-S1 paramedian epidural steroid injection under fluoroscopic guidance. After obtaining written consent, the patient was taken back to fluoroscopy suite, placed in a prone position with pillow under abdomen to decrease lumbar lordosis. Skin overlying lumbosacral area then prepped and draped in aseptic fashion. The L5-S1 vertebral interspace identified by AP fluoroscopy. Skin and subcutaneous tissue overlying target site of injection anesthetized with 3 mL of 1% lidocaine. A 20-gauge 3-1/2 inch Tuohy needle advanced under fluoroscopic guidance towards [address] [address] PAIN MANAGEMENT CONSULTATION Name: LAYO AKERS [facility] [id number] Admission: 06/08/18 ������������������ Attend Phys: Ryland Ponce DO Discharge: ������������������ Date of : 39 Report #: [id number] the epidural space using right paramedian approach. Epidural space identified using loss of resistance to air After negative aspiration for heme or cerebrospinal fluid, 1 mL of Omnipaque injected. Lumbar epidurogram confirmed using both AP and lateral fluoroscopy. After negative aspiration for heme or cerebrospinal fluid, 5 mL of a solution containing 2 mL 40 mg per mL, 80 mg total triamcinolone and 3 mL of lidocaine 1% injected slowly. Needle retracted mcfp, flushed with 1 mL of 1% lidocaine and then removed. Sterile bandage placed over injection site. No new motor deficits present in the lower extremities following procedure. The patient tolerated procedure well, carefully escorted to recovery room in stable condition. No apparent complication. After meeting discharge criteria, the patient discharged home. ��������������������������������������������� ���������������������������������������� By: ��������������������������������������������� 1212 [id number] Ryland Ponce DO /nt
[2018-06-08 11:05] VITALS: BP 140/78
--- NOTE | 2018-06-08 11:10 | NUR ---
Pain Clinic Assessment: 1. History of Osteoarthritis: HIPS SPINE History of Rheumatoid Arthritis: Not Applicable 2. Height: 5 ft. 0 in. 152.4 cm. Weight: 142.6 lb. oz. 64.683 kg. Patient's BMI: 27.8 3. Vital Signs: BP: 140/78 Pulse: 84 Resp: 16 Temp: 02 Sat: 95 ECG Mon: 4. Pain Intensity: 7 5. Fall Risk: Dizziness: N Needs help standing or walking: N Fallen in the last 3 months: N Fall risk comments: 6. Patient on Blood Thinner: None 7. History of Hypertension: Y 8. Opioid Therapy greater than 6 weeks: N Opiate Contract Signed: 9. Risk Assessment Tool Provided: 0-LOW RISK 10. Functional Assessment Tool: 11. Recreational Drug Use: Never Drug Type: Tobacco Use: Former Smoker Tobacco Type: Amount or Packs/day: How Many Years: Alcohol Use: Yes Frequency: Quant:
== END | disposition home or self-care (01) ==
LOC: PAIN 07:14
DX: M51.16 Intervertebral disc disorders with radiculopathy, lumbar region (principal); M47.27 Other spondylosis with radiculopathy, lumbosacral region; M48.061 Spinal stenosis, lumbar region without neurogenic claudication; G89.29 Other chronic pain; I10 Essential (primary) hypertension; Z88.8 Allergy status to other drugs, medicaments and biological substances; Z79.891 Long term (current) use of opiate analgesic; Z98.890 Other specified postprocedural states

== ENCOUNTER → 2018-10-19 | Outpatient (CLI) | payer OTHER ==
[~2018-10-19] VITALS: Ht 152.4 cm; Wt 63.1 kg
[~2018-10-19] MED LIST changes: +FLOMAX0.4 MG PO; +LOSARTAN POTAS100 MG PO
--- NOTE | ~2018-10-19 | HPC ---
[facility] [address] [place] [address] PAIN MANAGEMENT CONSULTATION Name: LAYO AKERS Room #: REG [facility].#: [id number] Admission: 10/19/18 ������������������ Attend Phys: Ryland Ponce DO Discharge: ������������������ Date of : 38 Report #: [id number] THIS REPORT FOR: //name// CC: Darcie oPnce DATE OF SERVICE: 10/19/2018 REFERRING PHYSICIAN: Darcie Edwards MD CHIEF COMPLAINT: Low back pain, right lower extremity pain with paresthesias. HISTORY OF PRESENT ILLNESS: As you know, patient is a 78-year-old female who returns today in followup visit to undergo next in the series of lumbar epidural injections under fluoroscopic guidance. She is placing pain score today at 8/10. She states pain begins in the low back, radiates to the bilateral buttocks then down the left leg greater than the right. She describes pain as chronic, deep, aching, numbness and tingling. Pain is exacerbated with walking, standing, lying down, improves with medications, rest in the seated position. Previous epidural injections have provided good and prolonged benefit. Most recent injection performed 06/18/2018 gave 70% improvement in overall pain lasting until just recently where she has a slow and progressive return of symptoms. She returns today in followup visit, denying any new injury, trauma or any changes in medical history since our last visit to undergo next in the series of epidural injections. ALLERGIES: CEPHALEXIN, CEFAZOLIN AND CIPROFLOXACIN. CURRENT MEDICATIONS: Tamsulosin, losartan, oxycodone, ibuprofen, biotin, vitamin B6, MiraLax, cholecalciferol, and [place] Thyroid. SOCIAL HISTORY: The patient denies tobacco, alcohol, IV or illicit drug use. She is retired, retired years ago, unaccompanied today. IMAGING: No new imaging available. PQRS: The patient has known arthritic changes of the lumbar spine, bilateral hips, no rheumatoid arthritis. She is placing pain intensity 8/10. She is a fall risk and has had a fall in the last 3 months. She is not using any type of ambulatory device, but has been advised to do so. She is not on blood thinners, but is treated for hypertension. She is on chronic opioids, but has a low opioid addiction potential. Pain impact score 38/70 moderate interference of daily activities secondary to pain. PHYSICAL EXAMINATION: [facility] [address] [place] [address] PAIN MANAGEMENT CONSULTATION Name: LAYO AKERS Room #: REG CL Rod#: [id number] Admission: 10/19/18 ������������������ Attend Phys: Ryland Ponce DO Discharge: ������������������ Date of : 39 Report #: [id number] VITAL SIGNS: Blood pressure 146/87, pulse 89, respiratory rate 16 and unlabored. The patient is 96% on room air. Height 5 feet tall, weight 139.2 pounds, and BMI calculated 27.2. GENERAL: Well-developed, well-nourished, well-hydrated 78-year-old female appearing stated age, pain is rated today at 8/10. HEENT: Normocephalic, atraumatic. Pupils equal, round, reactive to light. Extraocular muscles are intact. Sclerae nonicteric without injection. NEUROLOGIC: Cranial nerves 2-12 grossly intact. Speech fluent. EXTREMITIES: Show no clubbing, no cyanosis, and no edema. MUSCULOSKELETAL: Lower extremity strength is symmetrical 5/5. Straight leg raising positive on the right greater than left. Supine straight leg raising is positive, right greater than left, but positive on the left. Gait is mildly antalgic. Muscle bulk and tone appears symmetrical in comparing left lower extremity to right. ASSESSMENT: 1. Symptomatic lumbar radiculopathy. 2. Spinal stenosis of the lumbar spine, progressively worsening. 3. Displacement of lumbar intervertebral disk with radiculopathy. 4. Lumbosacral spondylosis with radiculopathy. 5. Lumbar degeneration. 6. Chronic intractable pain. PLAN: 1. The patient returns today in followup visit to undergo lumbar epidural injection under fluoroscopic guidance. The patient reports approximately 70% improvement in overall pain with previous epidural injection. She returns today to build on that success. She has been advised risks and benefits of the procedure, states understood and wished to proceed. 2. No medication changes made at today's visit. The patient will continue current medical therapy as previously prescribed. 3. We will see the patient back in followup visit to undergo next in the series of lumbar epidural injections under fluoroscopic guidance on an as needed basis. PROCEDURE NOTE: DESCRIPTION OF PROCEDURE: L5-S1 right paramedian epidural steroid injection under fluoroscopic guidance. After obtaining written consent, the patient was taken back to fluoroscopy suite, placed in prone position with pillow under abdomen to decrease lumbar lordosis. Skin overlying lumbosacral area then prepped and draped in aseptic fashion. Lumbar intervertebral spaces were identified by AP fluoroscopy. Skin and subcutaneous tissue overlying target site of injection anesthetized with 3 mL of 1% lidocaine. [address] [address] PAIN MANAGEMENT CONSULTATION Name: LAYO AKERS Room #: REG [facility]#: [id number] Admission: 10/19/18 ������������������ Attend Phys: Ryland Ponce DO Discharge: ������������������ Date of : 39 Report #: [id number] A 20-gauge 3-1/2 inch Tuohy needle advanced under fluoroscopic guidance towards the epidural space using a right paramedian approach. Epidural space identified using loss of resistance to air technique. After negative aspiration for heme or cerebrospinal fluid, 1 mL of Omnipaque injected. Lumbar epidurogram confirmed using both AP and lateral fluoroscopy. After negative aspiration for heme or cerebrospinal fluid, 5 mL of a solution containing 2 mL 40 mg per mL, 80 mg total triamcinolone along with 3 mL of lidocaine 1% injected slowly. Needle retracted correction, flushed with 1 mL of 1% lidocaine and then removed. Sterile bandage placed over injection site. No new motor deficits present in the lower extremities following procedure. The patient tolerated the procedure well, carefully escorted to recovery room in stable condition. No apparent complications. After meeting discharge criteria, the patient discharged home. ��������������������������������������������� ���������������������������������������� By: ��������������������������������������������� [id number] Ryland Ponce DO /nt
[2018-10-19 08:52] VITALS: BP 146/87
--- NOTE | 2018-10-19 09:18 | NUR ---
Pain Clinic Assessment: 1. History of Osteoarthritis: HIPS SPINE History of Rheumatoid Arthritis: Not Applicable 2. Height: 5 ft. 0 in. 152.4 cm. Weight: 139.2 lb. oz. 63.141 kg. Patient's BMI: 27.2 3. Vital Signs: BP: 146/87 Pulse: 89 Resp: 16 Temp: 02 Sat: 96 ECG Mon: 4. Pain Intensity: 8 5. Fall Risk: Dizziness: N Needs help standing or walking: N Fallen in the last 3 months: Y Fall risk comments: 6. Patient on Blood Thinner: None 7. History of Hypertension: Y 8. Opioid Therapy greater than 6 weeks: N Opiate Contract Signed: 9. Risk Assessment Tool Provided: 0-LOW RISK 10. Functional Assessment Tool: 11. Recreational Drug Use: Never Drug Type: Tobacco Use: Former Smoker Tobacco Type: Amount or Packs/day: How Many Years: Alcohol Use: Yes Frequency: Quant:
== END | disposition home or self-care (01) ==
LOC: PAIN 06:48
DX: M51.16 Intervertebral disc disorders with radiculopathy, lumbar region (principal); M48.061 Spinal stenosis, lumbar region without neurogenic claudication; M47.27 Other spondylosis with radiculopathy, lumbosacral region; G89.29 Other chronic pain; M16.0 Bilateral primary osteoarthritis of hip; I10 Essential (primary) hypertension; Z79.891 Long term (current) use of opiate analgesic; Z79.899 Other long term (current) drug therapy; Z88.8 Allergy status to other drugs, medicaments and biological substances; Z87.891 Personal history of nicotine dependence; Z98.890 Other specified postprocedural states

== ENCOUNTER → 2018-12-20 | Outpatient (CLI) | payer OTHER ==
[~2018-12-20] VITALS: Ht 152.4 cm; Wt 62.0 kg
[2018-12-20 14:07] VITALS: BP 126/76
--- NOTE | 2018-12-20 14:25 | NUR ---
Pain Clinic Assessment: 1. History of Osteoarthritis: HIPS SPINE History of Rheumatoid Arthritis: Not Applicable 2. Height: 5 ft. 0 in. 152.4 cm. Weight: 136.6 lb. oz. 61.961 kg. Patient's BMI: 26.7 3. Vital Signs: BP: 126/76 Pulse: 84 Resp: 16 Temp: 02 Sat: 99 ECG Mon: 4. Pain Intensity: 6-TODAY 5. Fall Risk: Dizziness: N Needs help standing or walking: N Fallen in the last 3 months: N Fall risk comments: 6. Patient on Blood Thinner: None 7. History of Hypertension: Y 8. Opioid Therapy greater than 6 weeks: N Opiate Contract Signed: 9. Risk Assessment Tool Provided: 0-LOW RISK 10. Functional Assessment Tool: 11. Recreational Drug Use: Never Drug Type: Tobacco Use: Former Smoker Tobacco Type: Amount or Packs/day: How Many Years: Alcohol Use: Yes Frequency: Quant:
== END | disposition home or self-care (01) ==
LOC: PAIN 06:49
DX: M51.16 Intervertebral disc disorders with radiculopathy, lumbar region (principal); M48.061 Spinal stenosis, lumbar region without neurogenic claudication; M47.27 Other spondylosis with radiculopathy, lumbosacral region; G89.29 Other chronic pain; Z88.8 Allergy status to other drugs, medicaments and biological substances; Z79.899 Other long term (current) drug therapy; Z87.891 Personal history of nicotine dependence

== ENCOUNTER → 2019-03-01 | Outpatient (CLI) | payer OTHER ==
[~2019-03-01] VITALS: Ht 152.4 cm; Wt 62.4 kg
--- NOTE | ~2019-03-01 | HPC ---
[facility] [place] [address] PAIN MANAGEMENT CONSULTATION Name: LAYO AKERS Room #: REG [facility].#: [id number] Admission: 03/01/19 Attend Phys: Ryland Ponce DO Discharge: Date of : 39 Report #: [id number] THIS REPORT FOR: //name// CC: DARCIE Ponce DATE OF SERVICE: 03/01/2019 REFERRING PHYSICIAN: Dr. Darcie Edwards. CHIEF COMPLAINT: Low back pain, bilateral lower extremity pain, right greater than left. HISTORY OF PRESENT ILLNESS: As you know, the patient is a very pleasant 78-year-old female returning in followup visit requesting to undergo lumbar epidural injection under fluoroscopic guidance. Unfortunately, the patient has had return of symptoms. She denies injury or trauma. She is placing pain score today at 6/10. She states that she has been in her normal state of health until just recently where she began to experience increasing pain. The last epidural injection gave 80% improvement in pain lasting for greater than 2 months. She returns today stating that her pain is exacerbated with walking and standing, improves with medications, rest, sitting position and previous epidural injection. ALLERGIES: CEPHALEXIN, CIPROFLOXACIN, and CEFAZOLIN. CURRENT MEDICATIONS: Losartan, oxycodone, ibuprofen, biotin, paroxetine, MiraLax, cholecalciferol, and [place] Thyroid. SOCIAL HISTORY: The patient denies tobacco, alcohol, IV or illicit drug use. She is retired, unaccompanied today. IMAGING: No new imaging available. PQRS: The patient has known arthritic changes of the lumbar spine, bilateral hips. No rheumatoid arthritis, placing pain score today 6/10, not a fall risk, has not had a fall in last 3 months, not on blood thinners, but is treated for hypertension. She is on chronic opioids and has a low opioid addiction potential. She is placing pain impact score 38/70, moderate interference of daily activities secondary to pain. PHYSICAL EXAMINATION: VITAL SIGNS: Blood pressure 138/89, pulse 77, respiratory rate 16 and unlabored. The patient is 97% on room air. Height 5 feet tall, weight 137.6 pounds, BMI calculated 26.9. [facility] [address] [place] [address] PAIN MANAGEMENT CONSULTATION Name: LAYO AKERS Room #: REG [facility]#: [id number] Admission: 03/01/19 Attend Phys: Ryland Ponce DO Discharge: Date of : 39 Report #: [id number] GENERAL: Well-developed, well-nourished, well-hydrated 78-year-old female appearing stated age, placing current pain score today at 6/10. HEENT: Normocephalic, atraumatic. Pupils equal, round, reactive to light. EXTREMITIES: Show no clubbing, no cyanosis, and no edema. MUSCULOSKELETAL: Lower extremity strength is symmetrical again today, 5/5. Seated straight leg raising is positive right, negative left. Supine straight leg raising positive right, negative left. This is noted at about 50-degree angle. Gait is mildly antalgic favoring right lower extremity over left. Muscle bulk and tone appears symmetrical. No atrophy noted in the lower extremities. ASSESSMENT: 1. Symptomatic lumbar radiculopathy. 2. Spinal stenosis of lumbar spine, progressively worsening. 3. Displacement of lumbar intervertebral disk with radiculopathy. 4. Lumbosacral spondylosis with radiculopathy. 5. Lumbar degeneration. 6. Chronic intractable pain. PLAN: 1. The patient returns today in followup visit having noted 80% improvement in overall pain with the epidural injection provided at last visit. She returns today in followup visit stating no new injury or trauma, requesting to undergo next in the series of epidural injections to address the recurrent 6/10 pain. The patient has been advised risks and benefits of the procedure, states understood and wished to proceed. 2. No medication changes made at today's visit. The patient will continue current medical therapy as prior prescribed. 3. We will see the patient back in followup visit on an as needed basis for possible next in the series of lumbar epidural injections. We are hopeful the patient will see good and prolonged benefit with today's procedure. DESCRIPTION OF PROCEDURE: L5-S1 right parasagittal epidural steroid injection under fluoroscopic guidance. After obtaining written consent, the patient was taken back to fluoroscopy suite, placed in prone position with pillow under abdomen to decrease lumbar lordosis. Skin overlying lumbosacral area then prepped and draped in aseptic fashion. The L5-S1 vertebral interspace identified by AP fluoroscopy. Skin and subcutaneous tissue overlying target site of injection anesthetized with 3 mL of 1% lidocaine. A 20-gauge 3-1/2 inch Tuohy needle advanced under fluoroscopic guidance towards the epidural space using a right parasagittal approach. Epidural space identified using loss of resistance to air technique. After negative aspiration for heme or cerebrospinal fluid, 1 mL of Omnipaque injected. Lumbar epidurogram [facility] [address] [place] [address] PAIN MANAGEMENT CONSULTATION Name: LAYO AKERS [id number] Admission: 03/01/19 Attend Phys: Ryland Ponce DO Discharge: Date of : 39 Report #: [id number] confirmed using both AP and lateral fluoroscopy. After negative aspiration for heme or cerebrospinal fluid, 5 mL of solution containing 2 mL 40 mg per mL, 80 mg total triamcinolone along with 3 mL of lidocaine 1% injected slowly. Needle then retracted half-way, flushed with 1 mL of 1% lidocaine and removed. Sterile bandage placed over injection site. There were no new motor deficits present in lower extremity following procedure. The patient tolerated procedure well, carefully escorted to recovery room in stable condition. No apparent complication. After meeting discharge criteria, the patient discharged to home. By: [id number] Ryland Ponce DO /nt
[2019-03-01 12:44] VITALS: BP 138/89
--- NOTE | 2019-03-01 12:58 | NUR ---
Pain Clinic Assessment: 1. History of Osteoarthritis: HIPS SPINE History of Rheumatoid Arthritis: Not Applicable 2. Height: 5 ft. 0 in. 152.4 cm. Weight: 137.6 lb. oz. 62.415 kg. Patient's BMI: 26.9 3. Vital Signs: BP: 138/89 Pulse: 77 Resp: 16 Temp: 02 Sat: 97 ECG Mon: 4. Pain Intensity: 6 5. Fall Risk: Dizziness: N Needs help standing or walking: N Fallen in the last 3 months: N Fall risk comments: 6. Patient on Blood Thinner: None 7. History of Hypertension: Y 8. Opioid Therapy greater than 6 weeks: N Opiate Contract Signed: 9. Risk Assessment Tool Provided: 0-LOW RISK 10. Functional Assessment Tool: 11. Recreational Drug Use: Never Drug Type: Tobacco Use: Former Smoker Tobacco Type: Amount or Packs/day: How Many Years: Alcohol Use: No Frequency: Quant:
== END | disposition home or self-care (01) ==
LOC: PAIN 02-27 13:47
DX: M51.16 Intervertebral disc disorders with radiculopathy, lumbar region (principal); M48.061 Spinal stenosis, lumbar region without neurogenic claudication; M47.27 Other spondylosis with radiculopathy, lumbosacral region; G89.29 Other chronic pain; I10 Essential (primary) hypertension; M19.90 Unspecified osteoarthritis, unspecified site; Z98.890 Other specified postprocedural states; Z79.899 Other long term (current) drug therapy; Z88.8 Allergy status to other drugs, medicaments and biological substances; Z79.891 Long term (current) use of opiate analgesic

== ENCOUNTER → 2019-05-10 | Outpatient (CLI) | payer OTHER ==
[~2019-05-10] VITALS: Ht 152.4 cm; Wt 60.3 kg
--- NOTE | ~2019-05-10 | HPC ---
[facility] [place] [address] [place] [address] PAIN MANAGEMENT CONSULTATION Name: LAYO AKERS Room #: REG [facility].#: [id number] Admission: 05/10/19 Attend Phys: Ryland Ponec DO Discharge: Date of : 39 Report #: [id number] THIS REPORT FOR: cc: Darcie Edwards MD, Hillary N. MD Johnson, James E. DO ~ CC: Darcie Ponce DATE OF SERVICE: 05/10/2019 REFERRING PHYSICIAN: Darcie Edwards MD CHIEF COMPLAINT: Low back pain, right lower extremity pain with paresthesias. HISTORY OF PRESENT ILLNESS: As you know, the patient is a very pleasant 78-year-old female who returns today in followup visit requesting to undergo next in the series of lumbar epidural injections under fluoroscopic guidance to address lumbar radicular pain. The patient reports pain today at a level of 8/10. She states pain begins in low back, radiates down the right leg all the way to the foot. She describes the pain as aching, numbness, tingling and burning when describing pain. She states pain is exacerbated with walking and standing, improves with medications, rest, seated position and previous epidural injection. She reports that previous epidural injection gave 90% improvement lasting for 7-8 weeks. She returns today in followup visit, denying any new injury or trauma requesting next in the series of epidural injections. ALLERGIES: CEPHALEXIN, CEFAZOLIN and CIPROFLOXACIN. CURRENT MEDICATIONS: Tamsulosin, losartan, oxycodone, ibuprofen, biotin, vitamin B6, MiraLax, cholecalciferol, and [place] Thyroid. SOCIAL HISTORY: The patient denies tobacco, alcohol, IV or illicit drug use. She is retired, retired years ago, unaccompanied today. IMAGING: No new imaging available. PQRS: The patient has known arthritic changes of the lumbar spine, bilateral hips and knees. No rheumatoid arthritis. She is placing pain intensity today at 8/10. She is not at fall risk, has not had a fall in last 3 months. She is not on blood thinners, but is treated for hypertension. She is on opioid medications, has a low opioid addiction potential. Pain impact score today is 38/70 indicating moderate interference of daily activities secondary to pain. PHYSICAL EXAMINATION: [facility] [address] [place] [address] PAIN MANAGEMENT CONSULTATION Name: LAYO AKERS Room #: REG [facility].#: [id number] Admission: 05/10/19 Attend Phys: Ryland Ponce DO Discharge: Date of : 39 Report #: [id number] VITAL SIGNS: Blood pressure 143/74, pulse 83, respiratory rate 16 and unlabored. The patient is 98% on room air. Height 5 feet tall, weight 133 pounds and BMI calculated 26.0. GENERAL: Well-developed, well-nourished, well-hydrated 78-year-old female appearing stated age, pain is rated today 8/10. HEENT: Normocephalic, atraumatic. Pupils equal, round, reactive to light. Speech fluent. EXTREMITIES: Show no clubbing, no cyanosis, and no noted edema. MUSCULOSKELETAL: Seated straight leg raising is positive on the right at approximately 60 degree angle. Supine straight leg raising positive on the right at about 60 degree angle. There is mild left findings. Gait is mildly antalgic favoring right lower extremity over left. Muscle bulk and tone equal and symmetrical in lower extremities. ASSESSMENT: 1. Symptomatic lumbar radiculopathy. 2. 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 3. Displacement of lumbar intervertebral disk with radiculopathy. 4. Lumbosacral spondylosis with radiculopathy. 5. Lumbar degeneration. 6. Chronic intractable pain. PLAN: 1. The patient returns today in followup visit requesting to undergo lumbar epidural injection under fluoroscopic guidance. She reported 90% improvement in overall pain lasting for almost 8 months with previous epidural injection. She is very response and returning today hoping to see similar response to address her current 8/10 pain that began spontaneously. She has been advised of the risks and benefits of the procedure, states understood and wished to proceed. 2. No medication changes made at today's visit. The patient will continue current medical therapy as previously prescribed. 3. We will see the patient back in followup visit on an as-needed basis for possible next in the series of epidural injections. We are hopeful the patient will see good and prolonged benefit with today's injection. PROCEDURE NOTE DESCRIPTION OF PROCEDURE: L5-S1 right parasagittal epidural steroid injection under fluoroscopic guidance. After obtaining written consent, the patient was taken back to fluoroscopy suite, placed in prone position with pillow under abdomen to decrease lumbar lordosis. Skin overlying lumbosacral area then prepped and draped in aseptic fashion. The L5-S1 vertebral interspace was identified by AP fluoroscopy. Skin and subcutaneous tissue overlying target site of injection anesthetized with 3 mL of 1% lidocaine. [address] [address] PAIN MANAGEMENT CONSULTATION Name: LAYO AKERS Room #: REG [facility]#: [id number] Admission: 05/10/19 Attend Phys: Ryland Ponce DO Discharge: Date of : 39 Report #: [id number] A 20-gauge 3-1/2 inch Tuohy needle advanced under fluoroscopic guidance towards the epidural space using a right parasagittal approach. Epidural space identified using loss of resistance to air technique. After negative aspiration for heme or cerebrospinal fluid, 1 mL of Omnipaque injected. Lumbar epidurogram confirmed using both AP and lateral fluoroscopy. After negative aspiration for heme or cerebrospinal fluid, 5 mL of a solution containing 2 mL 40 mg per mL, 80 mg total triamcinolone along with 3 mL of lidocaine 1% injected slowly. Needle then retracted approximately half way, flushed with 1 mL of 1% lidocaine and then removed. Sterile bandage placed over injection site. There were no new motor deficits present in lower extremities following procedure. The patient tolerated the procedure well, carefully escorted to recovery room in stable condition. No apparent complication. After meeting discharge criteria, the patient discharged home. By: [id number] Ryland Ponce DO /nt
[2019-05-10 13:47] VITALS: BP 143/74
--- NOTE | 2019-05-10 13:58 | NUR ---
Pain Clinic Assessment: 1. History of Osteoarthritis: HIPS SPINE History of Rheumatoid Arthritis: Not Applicable 2. Height: 5 ft. 0 in. 152.4 cm. Weight: 133.0 lb. oz. 60.328 kg. Patient's BMI: 26.0 3. Vital Signs: BP: 143/74 Pulse: 83 Resp: 16 Temp: 02 Sat: 98 ECG Mon: 4. Pain Intensity: 8 5. Fall Risk: Dizziness: N Needs help standing or walking: N Fallen in the last 3 months: N Fall risk comments: 6. Patient on Blood Thinner: None 7. History of Hypertension: Y 8. Opioid Therapy greater than 6 weeks: N Opiate Contract Signed: 9. Risk Assessment Tool Provided: 0-LOW RISK 10. Functional Assessment Tool: 11. Recreational Drug Use: Never Drug Type: Tobacco Use: Former Smoker Tobacco Type: Cigarettes Amount or Packs/day: 1-2 CIG. How Many Years: 20 Alcohol Use: No Frequency: Quant:
== END | disposition home or self-care (01) ==
LOC: PAIN 07:02
DX: M51.16 Intervertebral disc disorders with radiculopathy, lumbar region (principal); M48.061 Spinal stenosis, lumbar region without neurogenic claudication; M47.27 Other spondylosis with radiculopathy, lumbosacral region; G89.29 Other chronic pain; I10 Essential (primary) hypertension; M19.90 Unspecified osteoarthritis, unspecified site; Z79.899 Other long term (current) drug therapy; Z98.890 Other specified postprocedural states; Z88.8 Allergy status to other drugs, medicaments and biological substances

== ENCOUNTER → 2019-07-11 | Outpatient (CLI) | payer OTHER ==
[~2019-07-11] VITALS: Ht 152.4 cm; Wt 61.2 kg
[2019-07-11 10:11] VITALS: BP 140/68
--- NOTE | 2019-07-11 10:23 | NUR ---
Pain Clinic Assessment: 1. History of Osteoarthritis: HIPS SPINE History of Rheumatoid Arthritis: Not Applicable 2. Height: 5 ft. 0 in. 152.4 cm. Weight: 135.0 lb. oz. 61.236 kg. Patient's BMI: 26.4 3. Vital Signs: BP: 140/68 Pulse: 85 Resp: 16 Temp: 02 Sat: 99 ECG Mon: 4. Pain Intensity: 8 5. Fall Risk: Dizziness: N Needs help standing or walking: N Fallen in the last 3 months: N Fall risk comments: 6. Patient on Blood Thinner: None 7. History of Hypertension: Y 8. Opioid Therapy greater than 6 weeks: Y Opiate Contract Signed: 9. Risk Assessment Tool Provided: 0-LOW RISK 10. Functional Assessment Tool: 11. Recreational Drug Use: Never Drug Type: Tobacco Use: Former Smoker Tobacco Type: Amount or Packs/day: How Many Years: Alcohol Use: No Frequency: Quant:
--- NOTE | 2019-07-12 13:20 | HPC ---
[facility] [place] [address] PAIN MANAGEMENT CONSULTATION Name: LAYO AKERS Room #: REG [facility].#: [id number] Admission: 07/11/19 Attend Phys: Ryland Ponce DO Discharge: Date of : 39 Report #: [id number] THIS REPORT FOR: cc: Darcie Edwards MD, Hillary N. MD Johnson, James E. DO ~ DATE OF SERVICE: 07/11/2019 CHIEF COMPLAINT: Low back pain, right lower extremity pain and paresthesias. HISTORY OF PRESENT ILLNESS: As you know, the patient is a very pleasant 78-year-old female who returns today in followup visit to undergo next in the series of lumbar epidural injections under fluoroscopic guidance. The patient has done very well with previous epidural injections, the most recent providing 95% improvement in overall pain lasting for up to 6 weeks with unfortunate return of symptoms over the past couple of weeks. She is now complaining of pain in low back, right buttock radiating down the right leg, but also intermittent left leg. She is placing pain at 8/10. She returns today in followup visit to undergo lumbar epidural injection under fluoroscopic guidance. ALLERGIES: CEPHALEXIN, CEFAZOLIN and CIPROFLOXACIN. CURRENT MEDICATIONS: See chart. SOCIAL HISTORY: The patient denies tobacco, alcohol, IV or illicit drug use. She is retired, retired years ago, unaccompanied today. IMAGING: No new imaging available. PQRS: The patient has known arthritic changes of the bilateral knees and hips, lumbar spine. No rheumatoid arthritis. She is placing current pain intensity at 8/10. She is not a fall risk, has not had a fall in last 3 months. She is not on blood thinners, but is treated for hypertension. She is on chronic opioids, but does have a low opioid addiction potential. Pain impact score 38/70, moderate interference of daily activities secondary to pain. PHYSICAL EXAMINATION: VITAL SIGNS: Blood pressure 140/68, pulse 85, respiratory rate 16 and unlabored. The patient is 99% on room air. Height 5 feet tall, weight 135 pounds, BMI calculated 26.4. GENERAL: Well-developed, well-nourished, well-hydrated 78-year-old female appearing stated age, pain is rated today at 8/10. HEENT: Normocephalic, atraumatic. Pupils equal, round and reactive. EXTREMITIES: Show no clubbing, no cyanosis, no edema. MUSCULOSKELETAL: Lower extremity strength equal and symmetrical 5/5. [facility] [address] [place] [address] PAIN MANAGEMENT CONSULTATION Name: LAYO AKERS Room #: REG [facility].#: [id number] Admission: 07/11/19 Attend Phys: Ryland Ponce DO Discharge: Date of : 39 Report #: [id number] giveaway strength noted on the right when compared to left. Seated straight leg raising remains positive on the left at about 60-65 degree angle. Supine straight leg raising positive on the right at a 65 degree angle. Ankle clonus negative. Babinski is negative. Gait mildly antalgic favoring right lower extremity. ASSESSMENT: 1. Symptomatic lumbar radiculopathy. 2. Severe central canal stenosis of lumbar spine. 3. Displacement of lumbar intervertebral disk with radiculopathy. 4. Lumbosacral spondylosis with radiculopathy. 5. Lumbar degeneration. 6. Chronic intractable pain. PLAN: 1. The patient returns today in followup visit requesting to undergo lumbar epidural injection under fluoroscopic guidance. She reports a 95% improvement in overall pain lasting for nearly 6 weeks. She has unfortunately had a slow and progressive return of symptoms without inciting injury or trauma. She returns today in followup visit requesting the next in the series of epidural injections to build on success of previous intervention. The patient has been advised risks and benefits of the procedure, states understood and wished to proceed. 2. No medication changes made at today's visit. The patient will continue current medical therapy as prior prescribed. 3. We will see the patient back in followup visit on an as needed basis for possible next in the series of lumbar epidural injections. PROCEDURE NOTE DESCRIPTION OF PROCEDURE: L5-S1 interlaminar epidural steroid injection under fluoroscopic guidance. After obtaining written consent, the patient was taken back to fluoroscopy suite, placed in prone position with pillow under abdomen to decrease lumbar lordosis. Skin overlying lumbosacral area then prepped and draped in aseptic fashion. The L5-S1 vertebral interspace identified by AP fluoroscopy. Skin and subcutaneous tissue overlying target site of injection anesthetized with 3 mL of 1% lidocaine. A 20-gauge 3-1/2 inch Tuohy needle advanced under fluoroscopic guidance towards the epidural space using an interlaminar approach. Epidural space identified using loss of resistance to air technique. After negative aspiration for heme or cerebrospinal fluid, 1 mL of Omnipaque injected. Lumbar epidurogram confirmed using both AP and lateral fluoroscopy. After negative aspiration for heme or cerebrospinal fluid, 5 mL of a solution containing 2 mL 40 mg per mL, [address] [address] PAIN MANAGEMENT CONSULTATION Name: LAYO AKERS Room #: REG [facility]#: [id number] Admission: 07/11/19 Attend Phys: Ryland Ponce DO Discharge: Date of : 39 Report #: [id number] mg total triamcinolone along with 3 mL of lidocaine 1% injected slowly. Needle then retracted approximately half way, flushed with 1 mL of 1% lidocaine and then removed. Sterile bandage placed over injection site. No new motor deficits present in lower extremity following procedure. The patient tolerated procedure well, carefully escorted to recovery room in stable condition. No apparent complications. After meeting discharge criteria, the patient discharged home. <ELECTRONICALLY SIGNED> By: Ryland Ponce DO 07/12/19 1320 [id number] Ryland Ponce DO /nt
== END | disposition home or self-care (01) ==
LOC: PAIN 06:53
PROVIDERS: ATTEND Anesthesiology Pain Medicine
DX: M51.16 Intervertebral disc disorders with radiculopathy, lumbar region (principal); M47.27 Other spondylosis with radiculopathy, lumbosacral region; M48.061 Spinal stenosis, lumbar region without neurogenic claudication; G89.29 Other chronic pain; Z98.890 Other specified postprocedural states; Z79.899 Other long term (current) drug therapy; Z88.8 Allergy status to other drugs, medicaments and biological substances

== ENCOUNTER → 2019-08-30 | Outpatient (CLI) | payer OTHER ==
[~2019-08-30] VITALS: Ht 152.4 cm; Wt 70.5 kg
[~2019-08-30] MED LIST changes: -LOSARTAN POTAS100 MG PO; +LOSARTAN POTASS50 MG PO
[2019-08-30 15:01] VITALS: BP 127/79
--- NOTE | 2019-08-30 15:23 | NUR ---
Pain Clinic Assessment: 1. History of Osteoarthritis: HIPS SPINE History of Rheumatoid Arthritis: Not Applicable 2. Height: 5 ft. 0 in. 152.4 cm. Weight: 155.4 lb. oz. 70.489 kg. Patient's BMI: 30.3 3. Vital Signs: BP: 127/79 Pulse: 80 Resp: 14 Temp: 02 Sat: 100 ECG Mon: 4. Pain Intensity: 8 5. Fall Risk: Dizziness: N Needs help standing or walking: N Fallen in the last 3 months: N Fall risk comments: 6. Patient on Blood Thinner: None 7. History of Hypertension: Y 8. Opioid Therapy greater than 6 weeks: Y Opiate Contract Signed: 9. Risk Assessment Tool Provided: 0-LOW RISK 10. Functional Assessment Tool: 11. Recreational Drug Use: Never Drug Type: Tobacco Use: Former Smoker Tobacco Type: Amount or Packs/day: How Many Years: Alcohol Use: No Frequency: Quant:
--- NOTE | 2019-09-13 14:21 | HPC ---
[facility] [address] [place] [address] PAIN MANAGEMENT CONSULTATION Name: LAYO AKERS Room #: REG [facility].#: [id number] Admission: 08/30/19 Attend Phys: Ryland Ponce DO Discharge: Date of : 39 Report #: [id number] THIS REPORT FOR: cc: Darcie Edwards MD, Hillary N. MD Johnson, James E. DO ~ DATE OF SERVICE: 08/30/2019 REFERRING PHYSICIAN: Darcie Edwards MD CHIEF COMPLAINT: Low back pain, right lower extremity pain with paresthesias. HISTORY OF PRESENT ILLNESS: As you know, the patient is a very pleasant 78-year-old female who suffers from lumbar radicular symptoms involving the low back and right lower extremity. She has undergone epidural injections under fluoroscopic guidance to address radicular symptoms for years with good efficacy. She began taking injections in 08/2014. She continues to see good benefit with previous injections. She reports the most recent injection gave 75% improvement in overall pain lasting until just recently where she has had the slow and progressive return of symptoms. She is now describing pain that begins in low back, radiates to the right buttock down the right leg. She describes the pain as chronic and aching in sensation, exacerbated with walking and standing, improves with lumbar epidural injections, sitting rest and medications. She returns today in followup visit to undergo next in the series of epidural injections to improve lumbar radicular symptoms. ALLERGIES: CEPHALEXIN, CEFAZOLIN and CIPROFLOXACIN. CURRENT MEDICATIONS: Tamsulosin, losartan, oxycodone, ibuprofen, biotin, vitamin B6, MiraLax, cholecalciferol, and [place] Thyroid. SOCIAL HISTORY: The patient denies tobacco, alcohol, IV or illicit drug use. She is retired, retired years ago, unaccompanied today. IMAGING: No new imaging available. PQRS: The patient has known arthritic changes of the lumbar spine, bilateral hips and knees. No rheumatoid arthritis. She is placing pain intensity today at 8/10, not at fall risk, has not had a fall in last 3 months. She is not on blood thinners, but is treated for hypertension. She is on chronic opioids being provided by another physician. She has a low risk for opioid addiction based on our assessment tool. Pain impact is 38/70, moderate interference of daily activities secondary to pain. PHYSICAL EXAMINATION: [address] [address] PAIN MANAGEMENT CONSULTATION Name: LAYO AKERS Room #: REG CL Rod#: [id number] Admission: 08/30/19 Attend Phys: Ryland Ponce DO Discharge: Date of : 39 Report #: [id number] VITAL SIGNS: Blood pressure 127/79, pulse 80, respiratory rate 14 and unlabored. The patient is 100% on room air. Height 5 feet tall, weight 155.4 pounds, BMI calculated 30.3. GENERAL: Well-developed, well-nourished, well-hydrated 78-year-old female appearing stated age, pain is rated at 8/10. HEENT: Normocephalic, atraumatic. Pupils equal, round and reactive. EXTREMITIES: Show no clubbing, no cyanosis, no edema. MUSCULOSKELETAL: Seated straight leg raising is positive on the right. Supine straight leg raising positive right. Gait is mildly antalgic favoring right lower extremity over left. Muscle bulk and tone appears symmetrical in comparing left lower extremity to right. ASSESSMENT: 1. Symptomatic lumbar radiculopathy. 2. Central canal stenosis of lumbar spine. 3. Displacement of lumbar intervertebral disk with radiculopathy. 4. Lumbosacral spondylosis with radiculopathy. 5. Lumbar degeneration. 6. Chronic intractable pain. PLAN: 1. The patient returns today in followup visit requesting to undergo lumbar epidural injection under fluoroscopic guidance. She has noted excellent benefit with previous epidural injection with a 75% improvement in overall pain lasting until just recently where she had slow and progressive return of symptoms. She returns today in followup visit requesting next in the series of epidural injections to be performed today. The patient has been advised risks and benefits of a lumbar epidural injection. These risks include but are not necessarily limited to bleeding, bruising, infection, worsening pain, no relief of pain, also risk of temporary or permanent muscle weakness, temporary or permanent nerve damage, possible paralysis and . The patient states understood and wished to proceed. 2. No medications provided at today's visit. The patient will continue current medical therapy as prior prescribed. 3. We will see the patient back in followup visit on an as needed basis for possible next in the series of epidural injections. We are hopeful the patient will see good and prolonged benefit with today's procedure. DESCRIPTION OF PROCEDURE: L5-S1 right parasagittal epidural steroid injection under fluoroscopic guidance. After obtaining written consent, the patient was taken back to fluoroscopy suite, placed in prone position with pillow under abdomen to decrease lumbar lordosis. Skin overlying the lumbosacral area then prepped and draped in aseptic fashion. The L5-S1 vertebral interspace was identified by AP [address] [address] PAIN MANAGEMENT CONSULTATION Name: LAYO AKERS Room #: REG [facility] Tereza#: [id number] Admission: 08/30/19 Attend Phys: Ryland Ponce DO Discharge: Date of : 39 Report #: [id number] fluoroscopy. Skin and subcutaneous tissue overlying target site injection anesthetized with 3 mL of 1% lidocaine. A 20-gauge 3-1/2 inch Tuohy needle advanced under fluoroscopic guidance towards the epidural space using right parasagittal approach. Epidural space identified using loss of resistance to air technique. After negative aspiration for heme or cerebrospinal fluid, 1 mL of on Omnipaque injected. Lumbar epidurogram confirmed using both AP and lateral fluoroscopy. After negative aspiration for heme or cerebrospinal fluid, 5 mL of a solution containing 2 mL 40 mg per mL, 80 mg total triamcinolone along with 3 mL of lidocaine 1% injected slowly. Needle retracted mcc, flushed with 1 mL of 1% lidocaine and removed. Sterile bandage placed over injection site. No new motor deficits present in the lower extremity following procedure. The patient tolerated procedure well, carefully escorted to recovery room in stable condition. No apparent complications. After meeting discharge criteria, the patient discharged home. <ELECTRONICALLY SIGNED> By: Ryland Ponce DO 09/13/19 1421 0838 [id number] Ryland Ponce DO /nt
== END | disposition home or self-care (01) ==
LOC: PAIN 07:14
PROVIDERS: ATTEND Anesthesiology Pain Medicine
DX: M51.16 Intervertebral disc disorders with radiculopathy, lumbar region (principal); M48.061 Spinal stenosis, lumbar region without neurogenic claudication; M47.27 Other spondylosis with radiculopathy, lumbosacral region; G89.29 Other chronic pain; I10 Essential (primary) hypertension; M19.90 Unspecified osteoarthritis, unspecified site; Z98.890 Other specified postprocedural states; Z79.899 Other long term (current) drug therapy; Z87.891 Personal history of nicotine dependence; Z79.891 Long term (current) use of opiate analgesic; Z88.8 Allergy status to other drugs, medicaments and biological substances

== ENCOUNTER → 2019-11-07 | Outpatient (CLI) | payer OTHER ==
[~2019-11-07] VITALS: Ht 152.4 cm; Wt 60.3 kg
[~2019-11-07] MED LIST changes: +relief factor
--- NOTE | ~2019-11-07 | HPC ---
[address] [address] PAIN MANAGEMENT CONSULTATION Name: LAYO AKERS Room #: REG [facility].#: [id number] Admission: 11/07/19 Attend Phys: Ryland Ponce DO Discharge: Date of : 39 Report #: [id number] THIS REPORT FOR: cc: Darcie Edwards MD, Hillary N. MD Johnson, James E. DO ~ CC: Darcie Ponce DATE OF SERVICE: 11/07/2019 CHIEF COMPLAINT: Low back pain, right lower extremity pain and paresthesias. HISTORY OF PRESENT ILLNESS: As you know, the patient is a very pleasant 79-year-old female, who has returned today in followup visit with recurrent lumbar radicular symptoms involving the low back and right lower extremity. The patient does very well with previous epidural injections under fluoroscopic guidance. She reports a pain relief of up to 90%, lasting for 6-8 weeks. She states in the last couple of weeks prior to her injection, she was utilizing a medication [id number] call relief factor, which does prolong her analgesic benefit. She returns today in followup visit requesting next in the series of epidural injections to address recurrent pain for which she places pain score at 3-8/10 depending on activity. The patient denies injury or trauma that may have led to symptom reoccurrence. ALLERGIES: CEPHALEXIN, CEFAZOLIN AND CIPROFLOXACIN. CURRENT MEDICATIONS: 1. Relief factor. 2. Ibuprofen. 3. Biotin. 4. Paroxetine. 5. MiraLax. 6. Cholecalciferol. 7. [place] Thyroid. SOCIAL HISTORY: The patient denies tobacco, alcohol, IV or illicit drug use. She is retired, retired years ago, unaccompanied today. IMAGING: No new imaging available. PQRS: The patient has known arthritic changes of the lumbar spine, bilateral hips, bilateral knees and shoulders. No rheumatoid arthritis. She is placing current pain anywhere from 3-09/17. She is not a fall risk, has not had a fall in last 3 months. She is not on blood thinners, but is treated for [facility] [address] [place] [address] PAIN MANAGEMENT CONSULTATION Name: LAYO AKERS Room #: REG [facility]#: [id number] Admission: 11/07/19 Attend Phys: Ryland Ponce DO Discharge: Date of : 39 Report #: [id number] hypertension. She is not on chronic opioids and has a low opiate addiction potential based on our assessment tool. Pain impact today , moderate interference of daily activities secondary to pain. PHYSICAL EXAMINATION: VITAL SIGNS: Blood pressure 150/81, pulse 91, respiratory rate 16 and unlabored. The patient is 95% on room air. Height 5 feet tall, weight 133 pounds and BMI calculated 26.0. GENERAL: Well-developed, well-nourished, well-hydrated 79-year-old female appearing stated age, placing current pain score anywhere from 3-8/10. HEENT: Normocephalic, atraumatic. Pupils equal, round and reactive. EXTREMITIES: Show no clubbing, no cyanosis, and no noted edema. MUSCULOSKELETAL: Lower extremity strength is symmetrical 5/5. Seated straight leg raising remains positive on the right as does the supine straight leg raising positive on the right. Gait is mildly antalgic favoring right lower extremity over left. Muscle bulk and tone does not appear asymmetrical when comparing left lower extremity to right. ASSESSMENT: 1. Symptomatic lumbar radiculopathy. 2. Central canal stenosis of lumbar spine. 3. Displacement of lumbar intervertebral disk with radiculopathy. 4. Lumbosacral spondylosis with radiculopathy. 5. Lumbar degeneration. 6. Chronic intractable pain. PLAN: 1. The patient returns today in followup visit requesting to undergo lumbar epidural injection under fluoroscopic guidance. She has noted excellent benefit with previous epidural injections with the most recent giving 90% improvement in overall pain. She returns today in followup visit with recurrent back pain and lower extremity pain, and she places pain anywhere from 3-8/10. She has requested to undergo a lumbar epidural injection under fluoroscopic guidance to address this issue. The patient has been advised risks and benefits of a lumbar epidural injection. These risks include, but are not necessarily limited to bleeding, bruising, infection, worsening pain, no relief of pain, also risk of temporary or permanent muscle weakness, temporary or permanent nerve damage, possible paralysis and . The patient states she understood and wished to proceed. 2. No medication changes made at today's visit. The patient will continue current medical therapy as prior prescribed. 3. We will see the patient back in followup visit on an as needed basis for possible next in the series of lumbar epidural injections. We are hopeful the patient will see good and prolonged benefit with today's procedure. DESCRIPTION OF PROCEDURE: L5-S1 right parasagittal epidural steroid injection [facility] [address] [place] [address] PAIN MANAGEMENT CONSULTATION Name: LAYO AKERS [id number] Admission: 11/07/19 Attend Phys: Ryland Ponce DO Discharge: Date of : 39 Report #: [id number] under fluoroscopic guidance. After obtaining written consent, the patient was taken back to fluoroscopy suite, placed in prone position with pillow under abdomen to decrease lumbar lordosis. Skin overlying lumbosacral area then prepped and draped in aseptic fashion. The L5-S1 vertebral interspace was identified by AP fluoroscopy. Skin and subcutaneous tissue overlying target site injection anesthetized with 3 mL of 1% lidocaine. A 20-gauge 3-1/2 inch Tuohy needle advanced under fluoroscopic guidance towards the epidural space using a right parasagittal approach. Epidural space identified using loss of resistance to air technique. After negative aspiration for heme or cerebrospinal fluid, 1 mL of Omnipaque injected. Lumbar epidurogram was confirmed using both AP and lateral fluoroscopy. After negative aspiration for heme or cerebrospinal fluid, 5 mL of solution containing 2 mL 40 mg per mL, 80 mg total triamcinolone along with 3 mL of lidocaine 1% injected slowly. Needle retracted custodial, flushed with 1 mL of 1% lidocaine and then removed. Sterile bandage placed over injection site. No new motor deficits present in the lower extremities following procedure. The patient tolerated procedure well, carefully escorted to recovery room in stable condition. No apparent complications. After meeting discharge criteria, the patient discharged home. By: [id number] Ryland Ponce DO /nt
[2019-11-07 12:36] VITALS: BP 150/81
--- NOTE | 2019-11-07 12:40 | NUR ---
Pain Clinic Assessment: 1. History of Osteoarthritis: HIPS SPINE History of Rheumatoid Arthritis: DENIES 2. Height: 5 ft. 0 in. 152.4 cm. Weight: 133.0 lb. oz. 60.328 kg. Patient's BMI: 26.0 3. Vital Signs: BP: 150/81 Pulse: 91 Resp: 16 Temp: 02 Sat: 95 ECG Mon: 4. Pain Intensity: 8 MAX 3 TODAY 5. Fall Risk: Dizziness: N Needs help standing or walking: N Fallen in the last 3 months: N Fall risk comments: 6. Patient on Blood Thinner: None 7. History of Hypertension: Y 8. Opioid Therapy greater than 6 weeks: N Opiate Contract Signed: 9. Risk Assessment Tool Provided: 0-LOW RISK 10. Functional Assessment Tool: 11. Recreational Drug Use: Never Drug Type: Tobacco Use: Former Smoker Tobacco Type: Amount or Packs/day: How Many Years: Alcohol Use: No Frequency: Quant:
== END ==
LOC: PAIN 06:45
PROVIDERS: ATTEND Anesthesiology Pain Medicine
DX: M54.5 Low back pain (principal); M51.16 Intervertebral disc disorders with radiculopathy, lumbar region; M48.061 Spinal stenosis, lumbar region without neurogenic claudication; M47.27 Other spondylosis with radiculopathy, lumbosacral region; G89.29 Other chronic pain; M13.859 Other specified arthritis, unspecified hip; Z79.899 Other long term (current) drug therapy; Z88.8 Allergy status to other drugs, medicaments and biological substances; Z88.1 Allergy status to other antibiotic agents; Z87.891 Personal history of nicotine dependence

== ENCOUNTER → 2020-01-23 | Outpatient (CLI) | payer OTHER ==
[~2020-01-23] VITALS: Ht 152.4 cm; Wt 61.1 kg
[2020-01-23 13:57] VITALS: BP 154/80
--- NOTE | 2020-01-23 14:34 | NUR ---
Pain Clinic Assessment: 1. History of Osteoarthritis: HIPS SPINE History of Rheumatoid Arthritis: DENIES 2. Height: 5 ft. 0 in. 152.4 cm. Weight: 134.6 lb. oz. 61.054 kg. Patient's BMI: 26.3 3. Vital Signs: BP: 154/80 Pulse: 74 Resp: 16 Temp: 02 Sat: 97 ECG Mon: 4. Pain Intensity: 6 5. Fall Risk: Dizziness: N Needs help standing or walking: N Fallen in the last 3 months: N Fall risk comments: 6. Patient on Blood Thinner: None 7. History of Hypertension: Y 8. Opioid Therapy greater than 6 weeks: N Opiate Contract Signed: 9. Risk Assessment Tool Provided: 0-LOW RISK 10. Functional Assessment Tool: 11. Recreational Drug Use: Never Drug Type: Tobacco Use: Former Smoker Tobacco Type: Amount or Packs/day: How Many Years: Alcohol Use: No Frequency: Quant:
--- NOTE | 2020-01-24 11:20 | HPC ---
[facility] [address] [place] [address] PAIN MANAGEMENT CONSULTATION Name: LAYO AKERS Room #: REG [facility].#: [id number] Admission: 01/23/20 Attend Phys: Ryland Ponce DO Discharge: Date of : 39 Report #: [id number] THIS REPORT FOR: cc: Darcie Edwards MD, Hillary N. MD Johnson, James E. DO ~ DATE OF SERVICE: 01/23/2020 REFERRING PHYSICIAN: Dr. Darcie Edwards. CHIEF COMPLAINT: Low back pain, right lower extremity pain and paresthesias. HISTORY OF PRESENT ILLNESS: As you know, the patient is an extremely pleasant 79-year-old female who has returned today in followup visit with recurrent lumbar radicular symptoms involving low back and right lower extremity. The patient reports she receives excellent benefit with the epidural injections up to 75% improvement, but they only last for 6 weeks. She returns today in followup visit to discuss the next in a series of lumbar epidural injections and any other options for treatment she may have available. The patient denies injury or trauma that may have led to symptom reoccurrence. She states pain begins in the low back, radiates down the leg, mainly on the right, but also on the left. She indicates that her pain is chronic and aching in sensation, exacerbated with walking and standing, improves with medications, rest, repositioning in the seated position and epidural injections. ALLERGIES: CEPHALEXIN, CEFAZOLIN AND CIPROFLOXACIN. CURRENT MEDICATIONS: Ibuprofen 200 mg 2 tablets twice a day, biotin 99908 mcg oral, vitamin B6 100 mg once a day, MiraLax 17 g per day, cholecalciferol 1000 mg once a day, [place] Thyroid 90 mg once a day. SOCIAL HISTORY: The patient denies tobacco, alcohol, IV or illicit drug use. She is retired years ago, unaccompanied today. IMAGING: No new imaging available. PQRS: The patient has known arthritic changes of the lumbar spine, bilateral hips, bilateral knees and shoulders. No rheumatoid arthritis. She is not a fall risk, has not had a fall in last 3 months. She is not on blood thinners, nor she is treated for hypertension. She is not on chronic opioids and has a low opiate addiction potential. Pain impact is rated at 29/70, moderate interference of daily activities secondary to pain. PHYSICAL EXAMINATION: VITAL SIGNS: Blood pressure 154/80, pulse 74, respiratory rate 16 and unlabored. The patient is 97% on room air. Height 5 feet tall, weight 134.6 [place] [address] PAIN MANAGEMENT CONSULTATION Name: LAYO AKERS Room #: REG [facility]#: [id number] Admission: 01/23/20 Attend Phys: Ryland Ponce DO Discharge: Date of : 39 Report #: [id number] pounds, BMI calculated 26.3. GENERAL: Well-developed, well-nourished, well-hydrated 79-year-old female appearing stated age, pain is rated today at 6/10. HEENT: Normocephalic and atraumatic. Pupils are equal, round and reactive. Speech fluent. The patient is wearing a mask due to COVID regulations. EXTREMITIES: Show no clubbing, no cyanosis, no edema. MUSCULOSKELETAL: Lower extremity strength remains symmetrical, 5/5. Seated straight leg raising positive on the right. Supine straight leg raising positive on the right. Gait is mildly antalgic once again favoring right lower extremity. Muscle bulk and tone appears symmetrical. Ankle clonus negative. Babinski is negative. The patient can toe walk and heel walk, but assistance is required. ASSESSMENT: 1. Symptomatic lumbar radiculopathy. 2. 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 3. Displacement of lumbar intervertebral disk with radiculopathy. 4. Lumbosacral spondylosis with radiculopathy. 5. Lumbar degeneration. 6. Chronic pain. PLAN: 1. The patient returns today in followup visit requesting to undergo lumbar epidural injection under fluoroscopic guidance. The patient reports 75% improvement in overall pain, but unfortunately, her symptoms recurred about 6 weeks after each injection. We have discussed with the patient other options for treatment. She wishes to undergo the epidural injection today, is also to discuss those other options. 2. The patient was advised risks and benefits of a lumbar epidural injection. These risks include but are not necessarily limited to bleeding, bruising, infection, worsening pain, no relief of pain, also risk of temporary or permanent muscle weakness, temporary or permanent nerve damage, possible paralysis and . The patient states understood and wished to proceed. 3. No medication changes made at today's visit. The patient will continue current medical therapy as prior prescribed. 4. We discussed with the patient all the various treatment options for lumbar radiculopathy and central canal stenosis. The patient is interested in the spinal cord stimulator process. I have given the patient information about the spinal cord stimulator today. She is trying to avoid traditional surgical options and utilizing more conservative treatment. I do believe she would be an excellent candidate for a spinal cord stimulator. I have given the patient information about the psychiatric evaluation, she needs to undergo before she could entertain the option of having a spinal cord stimulator trial. If the patient shows no significant psychopathology and no reason why from a psychiatric standpoint, we could not move forward with a temporary spinal cord stimulator trial would be more than willing to do so. I believe that she would [facility] [address] [place] [address] PAIN MANAGEMENT CONSULTATION Name: LAYO AKERS [facility] [id number] Admission: 01/23/20 Attend Phys: Ryland Ponce DO Discharge: Date of : 39 Report #: [id number] be an excellent candidate given the findings on physical exam and her long-term treatment for lumbar radiculopathy, I believe this would be an excellent alternative treatment. She was given information both in digital and written form today. She will review those informations if she is interested to contact Psychiatry and be seen. She was advised to contact our clinic if she does make an appointment with psychiatric professionals so that we can watch for the results. 5. We will see the patient back in followup visit for possible next in the series of lumbar epidural injections. We will also see her back if she does complete his psychiatric evaluation, so that we can review those findings and begin the process of scheduling for a spinal cord stimulator trial implantation. We are hopeful the patient will see benefit with today's epidural injection, but we will be available to discuss the spinal cord stimulator further. DESCRIPTION OF PROCEDURE: L5-S1 interlaminar epidural steroid injection under fluoroscopic guidance. After obtaining written consent, the patient was taken back to fluoroscopy suite, placed in prone position with pillow under abdomen to decrease lumbar lordosis. Skin overlying lumbosacral area then prepped and draped in aseptic fashion. The lumbar intervertebral spaces were identified by AP fluoroscopy. Skin and subcutaneous tissue overlying target site of injection anesthetized with 3 mL of 1% lidocaine. A 20-gauge 3-1/2 inch Tuohy needle advanced under fluoroscopic guidance towards the epidural space using a parasagittal approach. Epidural space identified using loss of resistance to air technique. After negative aspiration for heme or cerebrospinal fluid, 1 mL of Omnipaque injected. A lumbar epidurogram was confirmed using both AP and lateral fluoroscopy. After negative aspiration for heme or cerebrospinal fluid, 5 mL of a solution containing 2 mL 40 mg per mL, 80 mg total triamcinolone along with 3 mL of lidocaine 1% injected slowly. Needle retracted approximately half way, flushed with 1 mL of 1% lidocaine and removed. Sterile bandage placed over injection site. No new motor deficits present in the upper extremities following procedure. The patient tolerated the procedure well, carefully escorted to recovery room in stable condition. No apparent complications. After meeting discharge criteria, the patient discharged home. <ELECTRONICALLY SIGNED> By: Ryland Ponce DO 01/24/20 1120 [id number] Ryland Ponce DO /nt
== END | disposition home or self-care (01) ==
LOC: PAIN 06:50
PROVIDERS: ATTEND Anesthesiology Pain Medicine
DX: M51.16 Intervertebral disc disorders with radiculopathy, lumbar region (principal); M48.061 Spinal stenosis, lumbar region without neurogenic claudication; M47.27 Other spondylosis with radiculopathy, lumbosacral region; G89.29 Other chronic pain; Z98.890 Other specified postprocedural states; Z79.899 Other long term (current) drug therapy; Z87.891 Personal history of nicotine dependence; Z88.8 Allergy status to other drugs, medicaments and biological substances

== ENCOUNTER → 2020-03-19 | Outpatient (CLI) | payer OTHER ==
[~2020-03-19] VITALS: Ht 147.3 cm; Wt 59.1 kg
[~2020-03-19] MED LIST changes: +LEVOTHYROXINE125 MC1 PO
[2020-03-19 07:19] VITALS: BP 145/81
--- NOTE | 2020-03-19 07:27 | NUR ---
Pain Clinic Assessment: 1. History of Osteoarthritis: HIPS SPINE History of Rheumatoid Arthritis: DENIES 2. Height: 4 ft. 10 in. 147.3 cm. Weight: 130.4 lb. oz. 59.149 kg. Patient's BMI: 27.3 3. Vital Signs: BP: 145/81 Pulse: 90 Resp: 16 Temp: 02 Sat: 98 ECG Mon: 4. Pain Intensity: 7-8 5. Fall Risk: Dizziness: N Needs help standing or walking: N Fallen in the last 3 months: Y Fall risk comments: 6. Patient on Blood Thinner: None 7. History of Hypertension: Y 8. Opioid Therapy greater than 6 weeks: N Opiate Contract Signed: 9. Risk Assessment Tool Provided: 0-LOW RISK 10. Functional Assessment Tool: 11. Recreational Drug Use: Never Drug Type: Tobacco Use: Former Smoker Tobacco Type: Amount or Packs/day: How Many Years: Alcohol Use: No Frequency: Quant:
--- NOTE | 2020-03-20 11:27 | HPC ---
[facility] [address] [place] [address] PAIN MANAGEMENT CONSULTATION Name: LAYO AKERS Room #: REG [facility]..#: [id number] Admission: 03/19/20 Attend Phys: Ryland Ponce DO Discharge: Date of : 39 Report #: [id number] THIS REPORT FOR: cc: Darcie Edwards MD, Hillary N. MD Johnson, James E. DO ~ DATE OF SERVICE: 03/19/2020 REFERRING PHYSICIAN: Darcie Edwards MD CHIEF COMPLAINT: Low back pain, bilateral lower extremity pain, right greater than left. HISTORY OF PRESENT ILLNESS: As you know, the patient is extremely pleasant 79-year-old female returning in followup visit today to undergo spinal cord stimulator trial implantation under fluoroscopic guidance. The patient has undergone epidural injections over the past couple of years with benefit, but unfortunately recent epidural injections have begun to lose some of their efficacy. We have moved forward with authorization process for the patient to undergo a trial with a spinal cord stimulator to determine if her symptoms would improve with this device. She has received authorization and returns today in followup visit to undergo implantation of the device itself. She is placing her current pain score 7-8/10. She is denying any new injury or trauma that may have led to symptom development. She returns for spinal cord stimulator trial implantation under fluoroscopic guidance. ALLERGIES: CEPHALEXIN, CEFAZOLIN AND CIPROFLOXACIN. CURRENT MEDICATIONS: Levothyroxine 125 mcg per day, ibuprofen 200 mg twice a day, biotin 10,000 mg once a day, vitamin B6 100 mg once a day, MiraLax 17 grams per day, vitamin D 1000 units once a day. SOCIAL HISTORY: The patient denies tobacco, alcohol, IV or illicit drug use. She is retired, retired years ago, unaccompanied today. IMAGING: No new imaging available. PQRS: The patient has known arthritic changes of the lumbar spine, bilateral hips, bilateral knees and shoulders. No rheumatoid arthritis. She is placing current pain score 7-8/10. She is not a fall risk, but did have a fall in the past 3 months, tripping over objects at home. She is taking care of this problem and should not have this happen again. She is not on blood thinners, but is treated for hypertension. She is not on chronic opioids, has a low opiate addiction potential. Pain impact is 29/70, moderate interference of daily activities secondary to pain. [address] [address] PAIN MANAGEMENT CONSULTATION Name: LAYO AKERS [id number] Admission: 03/19/20 Attend Phys: Ryland Ponce DO Discharge: Date of : 39 Report #: [id number] PHYSICAL EXAMINATION: VITAL SIGNS: Blood pressure 145/81, pulse 90, respiratory rate 16 and unlabored. The patient 98% on room air. Height 4 feet 10 inches tall, weight 130.4 pounds, BMI calculated 27.3. GENERAL: Well-developed, well-nourished, well-hydrated 79-year-old female appearing stated age, pain is rated today 7-8/10. HEENT: Normocephalic, atraumatic. Pupils equal, round and reactive. NEUROLOGIC: Speech is fluent. The patient is in a mask due to COVID regulations. EXTREMITIES: Show no clubbing, no cyanosis, no edema. MUSCULOSKELETAL: Seated straight leg raising is positive on the right. Supine straight leg raising remains positive on the right. Gait is mildly antalgic favoring right lower extremity over left. Lower extremity strength appears symmetrical 5/5 as does the muscle bulk and tone. ASSESSMENT: 1. Symptomatic lumbar radiculopathy. 2. Central canal stenosis of lumbar spine. 3. Displacement of lumbar intervertebral disk with radiculopathy. 4. Lumbosacral spondylosis with radiculopathy. 5. Lumbar degeneration. 6. Chronic intractable pain. PLAN: 1. The patient returns today in followup visit having received authorization to undergo spinal cord stimulator trial implantation under fluoroscopic guidance to address lumbar radiculopathy secondary to central canal stenosis. The patient has been advised of the risks and the benefits of a spinal cord stimulator trial implantation. These risks include but are not necessarily limited to bleeding, bruising, infection, worsening pain, no relief of pain, also risk of temporary or permanent muscle weakness, temporary or permanent nerve damage, possible paralysis and . The patient states understood and wished to proceed. 2. No medication changes made at today's visit. The patient will continue current medical therapy as prior prescribed. 3. We will see the patient back in followup visit next week for explantation of device. The patient has been advised anytime during the trial she is experiencing increased back pain, headache, fever, chills, night sweats, worsening of pain, she is to contact the pain clinic specifically. If she is having her typical recurrence of typical pain, she is then to contact the [employer] device franchise sales representative for further adjustments in the cord stimulator. We plan to see her back next week, but will be available if necessary. PROCEDURE NOTE DESCRIPTION OF PROCEDURE: Two lead spinal cord stimulator trial implantation under fluoroscopic guidance. [address] [address] PAIN MANAGEMENT CONSULTATION Name: LAYO AKERS Room #: REG [facility]#: [id number] Admission: 03/19/20 Attend Phys: Ryland Ponce DO Discharge: Date of : 39 Report #: [id number] After obtaining written consent, an IV Hep-Lock was placed in the patient's right upper extremity. The patient was given IV prophylactic of vancomycin 1 gram infused over 30 minutes prior to procedure. The patient was then taken to the fluoroscopy suite, placed in prone position with 2 pillows under the abdomen to decrease lumbar lordosis. Cardiopulmonary monitoring was established and the patient's vital signs were monitored throughout the procedure. The patient's thoracolumbar spine was prepped and draped with chlorhexidine and draped in usual sterile fashion. There was no IV sedation given prior to procedure. An AP fluoroscopic view was obtained to identify marked midline positions of the T10 through L2 spinous processes. Skin was anesthetized with 1% lidocaine, 5 mL on the right and 5 mL on the left for a total of 10 mL being introduced prior to the 14-gauge 4-inch Tuohy needle was being advanced. The skin entry site was at approximate level of the L1 vertebral body. Needle was advanced using a paramedian approach to the right of midline at approximately 45 degree angle. Loss of resistance to air was utilized to verify placement within the epidural space. Epidural space was entered at the T12-L1 interspace. A lateral fluoroscopic view was obtained to confirm the position of the tip of the Tuohy needle was in the epidural space. Aspiration noted to be negative for heme or cerebrospinal fluid. The patient did not complain of pain or paresthesia during needle placement. The spinal cord stimulating lead was then advanced through the Tuohy needle under direct visualization. The tip of the stimulating lead was aligned with the superior endplate of T8 vertebral body and located within the midline. Our attention was then directed to the left side. Needle entry site was at approximate level of the L1 vertebral body. Needle was advanced using a paramedian approach to the left of midline, approximately 45 degree angle. Loss of resistance to air was utilized to verify placement within the epidural space. Epidural space entered at the T12-L1 interspace. Lateral fluoroscopic view was obtained to confirm the position of the tip of the Tuohy needle within the epidural space. Aspiration noted to be negative for heme or cerebrospinal fluid. The patient did not complain of pain or paresthesias during needle placement. The spinal cord stimulating lead was then advanced through the Tuohy needle under direct visualization within the midline. The tip of the stimulating lead was aligned with the inferior endplate of T8 vertebral body and located within the midline. The stylets were then removed from the leads followed by the Tuohy needles. We confirmed that during the removal process, the leads did not move from their original position. This was done both with AP and lateral fluoroscopic imaging. The stimulating leads were then connected to the spinal cord stimulating device and the leads were then anchored to the patient's back with benzoin, Steri-Strips, and OpSite bandaging. The patient tolerated procedure well, carefully escorted to recovery room in stable condition. There were no apparent complications. Over half hour time [address] [address] PAIN MANAGEMENT CONSULTATION Name: DELPHINELAYO YONATHAN Room #: REG [facility]#: [id number] Admission: 03/19/20 Attend Phys: Ryland Ponce DO Discharge: Date of : 39 Report #: [id number] was used to program the spinal cord stimulator to obtain optimal capture of the patient's distribution of pain at acceptable voltage. The [employer] device franchise sales representative instructed the patient on the use of the stimulator during the trial and again explained the precautions of getting the area wet. The patient was given the telephone number of the [employer] device franchise sales representative, both personal cell number and 1800 number for contact. The patient was advised if she begins to experience increasing back pain, headache, fever, chills, night sweats or any concerning signs of infection, she is to contact the on-call pain physician. After meeting our discharge criteria, the patient was discharged home with plans to return next week for explantation of the device. <ELECTRONICALLY SIGNED> By: Ryland Ponce DO 03/20/20 1127 [id number] Ryland Ponce DO /nt
== END | disposition home or self-care (01) ==
LOC: PAIN 06:50
PROVIDERS: ATTEND Anesthesiology Pain Medicine
DX: M51.16 Intervertebral disc disorders with radiculopathy, lumbar region (principal); M47.27 Other spondylosis with radiculopathy, lumbosacral region; M48.061 Spinal stenosis, lumbar region without neurogenic claudication; G89.29 Other chronic pain; I10 Essential (primary) hypertension; M19.90 Unspecified osteoarthritis, unspecified site; Z98.890 Other specified postprocedural states; Z79.899 Other long term (current) drug therapy; Z88.8 Allergy status to other drugs, medicaments and biological substances

== ENCOUNTER → 2020-03-26 | Outpatient (CLI) | payer OTHER ==
[~2020-03-26] VITALS: Ht 147.3 cm; Wt 58.0 kg
[2020-03-26 10:09] VITALS: BP 146/92
--- NOTE | 2020-03-26 10:16 | NUR ---
Pain Clinic Assessment: 1. History of Osteoarthritis: HIPS SPINE History of Rheumatoid Arthritis: DENIES 2. Height: 4 ft. 10 in. 147.3 cm. Weight: 127.8 lb. oz. 57.970 kg. Patient's BMI: 26.7 3. Vital Signs: BP: 146/92 Pulse: 95 Resp: 116 Temp: 02 Sat: 100 ECG Mon: 4. Pain Intensity: 3 5. Fall Risk: Dizziness: N Needs help standing or walking: N Fallen in the last 3 months: N Fall risk comments: 6. Patient on Blood Thinner: None 7. History of Hypertension: Y 8. Opioid Therapy greater than 6 weeks: N Opiate Contract Signed: 9. Risk Assessment Tool Provided: 0-LOW RISK 10. Functional Assessment Tool: 11. Recreational Drug Use: Never Drug Type: Tobacco Use: Former Smoker Tobacco Type: Amount or Packs/day: How Many Years: Alcohol Use: No Frequency: Quant:
--- NOTE | 2020-03-26 14:56 | HPC ---
[facility] [place] [address] PAIN MANAGEMENT CONSULTATION Name: LAYO AKERS Room #: REG [facility].#: [id number] Admission: 03/26/20 Attend Phys: Ryland Ponce DO Discharge: Date of : 39 Report #: [id number] THIS REPORT FOR: cc: Darcie Edwards MD, Hillary N. MD Johnson, James E. DO ~ DATE OF SERVICE: 03/26/2020 REFERRING PHYSICIAN: Darcie Edwards M.D. CHIEF COMPLAINT: Low back pain, bilateral lower extremity pain with paresthesias, right greater than left. HISTORY OF PRESENT ILLNESS: As you know, the patient is a pleasant 79-year-old female who returns today in followup visit having undergone a week-long trial spinal cord stimulator implantation with the Nevro device. She is reporting a 75% improvement in overall pain. She does report that she is somewhat disappointed that she did not receive 100% improvement in overall pain. She returns today in followup visit for explantation of device and discuss the possibility of moving forward with permanent implant. The patient's pain today rated no higher than 3/10. ALLERGIES: CEPHALEXIN, CEFAZOLIN AND CIPROFLOXACIN. CURRENT MEDICATIONS: Levothyroxine, ibuprofen, biotin, vitamin B6, MiraLax, vitamin D. SOCIAL HISTORY: The patient denies tobacco, alcohol, IV or illicit drug use. She is retired, retired years ago; unaccompanied at today's visit. IMAGING: No new imaging available. PQRS: The patient has known arthritic changes of the lumbar spine, bilateral hips, bilateral knees and shoulders. No rheumatoid arthritis. She is placing current pain score 3/10. She is not a fall risk, has not had a fall in last 3 months. She is not on blood thinners, but is treated for hypertension. She is not on chronic opioids, has a low opiate addiction potential. Pain impact is 29/70, [id number] interference of daily activities secondary to pain. PHYSICAL EXAMINATION: VITAL SIGNS: Blood pressure 146/92, pulse 95, respiratory rate 16 and unlabored. The patient is 100% on room air. Height 4 feet 10 inches tall, weight 127.8 pounds, BMI calculated 26.7. GENERAL: Well-developed, well-nourished, well-hydrated 79-year-old female appearing stated age, no acute distress, awake, alert and oriented x 3. Current pain is rated at 3/10. [place] [address] PAIN MANAGEMENT CONSULTATION Name: LAYO AKERS [facility] [id number] Admission: 03/26/20 Attend Phys: Ryland Ponce DO Discharge: Date of : 39 Report #: [id number] HEENT: Normocephalic, atraumatic. Pupils equal, round and reactive. The patient is wearing a mask in compliance with COVID-19 regulations. EXTREMITIES: Show no clubbing, no cyanosis. No appreciable edema. MUSCULOSKELETAL: Seated straight leg raising is positive on the right. Supine straight leg raising positive on the right. Gait is antalgic favoring right lower extremity over left. There is 2 spinal cord stimul[address] leads in place. The bandaging is clean, dry and intact. ASSESSMENT: 1. Symptomatic lumbar radiculopathy. 2. Central canal stenosis of lumbar spine. 3. Displacement of lumbar intervertebral disk with radiculopathy. 4. Lumbosacral spondylosis with radiculopathy. 5. Lumbar degeneration. 6. Chronic intractable pain. PLAN: 1. The patient returns today in followup visit for explantation of spinal cord stimulating device. She has had a 1-week trial with the device and reports a 75% improvement in overall pain. Despite this significant pain improvement, the patient states that she is somewhat disappointed that she did not receive 100% improvement in symptoms. I advised the patient the device itself could not and will not be able to provide 100% improvement in symptoms. These devices are to make pain tolerable, resolution of symptoms is not practical. We discussed this at length today. We did discuss with the patient the things she was able to do now that she has had the device implanted for 7 days. She has had an increase in her activity to go about daily living without significant pain interference. She is actually very please with this device and she wishes to consider her options before moving forward with permanent implant. She is requested that she contact our clinic next week to advise whether or not she wishes to move forward. 2. No medication changes made at today's visit. The patient will continue current medical therapy as prior prescribed. 3. We plan to see the patient back in followup visit on an as needed basis. She will contact our clinic over the next week to advise as to whether or not she wishes to move forward with a permanent implant of the spinal cord stimulator that did provide 75% improvement in overall pain. PROCEDURE NOTE DESCRIPTION OF PROCEDURE: Explantation of spinal cord stimulating leads. The patient was placed in a seated position. We removed all OpSite bandaging and Steri-Strips. There were 2 spinal [address] stimul[address] leads in place. There was no erythema or drainage at the insertion sites. The leads were easily explanted without complication. There was no pain or paresthesias with [address] [address] PAIN MANAGEMENT CONSULTATION Name: LAYO AKERS Room #: REG [facility]#: [id number] Admission: 03/26/20 Attend Phys: Ryland Ponce DO Discharge: Date of : 39 Report #: [id number] explantation of these devices. Each lead had their 8 electrodes and the tips intact. Sterile bandages were placed over the insertion sites. The patient was advised not to get the area wet for the next 24 hours, she could then return to normal bathing activities after the first 24 hours. <ELECTRONICALLY SIGNED> By: Ryland Ponce DO 03/26/20 1456 [id number] 1421 Ryland Ponce DO /nt
== END ==
LOC: PAIN 06:59
PROVIDERS: ATTEND Anesthesiology Pain Medicine
DX: M79.661 Pain in right lower leg (principal); M79.662 Pain in left lower leg; R20.2 Paresthesia of skin; M54.5 Low back pain; Z79.891 Long term (current) use of opiate analgesic

== ENCOUNTER → 2020-04-16 | Outpatient (CLI) | payer OTHER ==
[~2020-04-16] VITALS: Ht 147.3 cm; Wt 58.9 kg
[2020-04-16 10:03] VITALS: BP 142/75
--- NOTE | 2020-04-16 10:10 | NUR ---
Pain Clinic Assessment: 1. History of Osteoarthritis: HIPS SPINE History of Rheumatoid Arthritis: DENIES 2. Height: 4 ft. 10 in. 147.3 cm. Weight: 129.8 lb. oz. 58.877 kg. Patient's BMI: 27.1 3. Vital Signs: BP: 142/75 Pulse: 90 Resp: 16 Temp: 02 Sat: 98 ECG Mon: 4. Pain Intensity: 8 5. Fall Risk: Dizziness: N Needs help standing or walking: N Fallen in the last 3 months: N Fall risk comments: 6. Patient on Blood Thinner: None 7. History of Hypertension: Y 8. Opioid Therapy greater than 6 weeks: N Opiate Contract Signed: 9. Risk Assessment Tool Provided: 0-LOW RISK 10. Functional Assessment Tool: 11. Recreational Drug Use: Never Drug Type: Tobacco Use: Former Smoker Tobacco Type: Amount or Packs/day: How Many Years: Alcohol Use: No Frequency: Quant:
--- NOTE | 2020-04-17 10:35 | HPC ---
[address] [address] PAIN MANAGEMENT CONSULTATION Name: LAYO AKERS Room #: REG [facility].#: [id number] Admission: 04/16/20 Attend Phys: Ryland Ponce DO Discharge: Date of : 39 Report #: [id number] THIS REPORT FOR: cc: Darcie Edwards MD, Hillary N. MD Johnson, James E. DO ~ DATE OF SERVICE: 04/16/2020 REFERRING PHYSICIAN: Dr. Darcie Edwards. CHIEF COMPLAINT: Low back pain, bilateral lower extremity pain with paresthesias, right greater than left. HISTORY OF PRESENT ILLNESS: As you know, the patient is a very pleasant 79-year-old female returning in followup visit requesting to undergo lumbar epidural injection under fluoroscopic guidance. The patient is scheduled to undergo permanent spinal cord stimulator trial implantation, but this schedule is not until May. She returns requesting a lumbar epidural injection to provide analgesic benefit for her ongoing low back and bilateral lower extremity symptoms for which she places pain score at 8/10. She denies new injury or trauma that may have led to symptom reoccurrence. She returns for a lumbar epidural injection under fluoroscopic guidance. ALLERGIES: CEPHALEXIN, CEFAZOLIN AND CIPROFLOXACIN. CURRENT MEDICATIONS: Levothyroxine, ibuprofen, biotin, vitamin B6, MiraLax and vitamin D. SOCIAL HISTORY: The patient denies tobacco, alcohol, IV or illicit drug use. She is retired, retired years ago. IMAGING: No new imaging available. PQRS: The patient has known arthritic changes of the lumbar spine, bilateral hips, bilateral knees and shoulders. No rheumatoid arthritis. She is placing pain intensity today 8/10. She is not a fall risk, has not had a fall in last 3 months. She is not on blood thinners, but is treated for hypertension. She is not on chronic opioids and has a low opiate addiction potential. Pain impact is 29/70, moderate interference of daily activities secondary to pain. PHYSICAL EXAMINATION: VITAL SIGNS: Blood pressure 142/75, pulse 90, respiratory rate 16 and unlabored. The patient 98% on room air. Height 4 feet 10 inches tall, weight 129.8 pounds, BMI calculated 27.1. GENERAL: Well-developed, well-nourished, well-hydrated 79-year-old female appearing stated age, placing current pain score at 8/10. [address] [address] PAIN MANAGEMENT CONSULTATION Name: LAYO AKERS [id number] Admission: 04/16/20 Attend Phys: Ryland Ponce DO Discharge: Date of : 39 Report #: [id number] HEENT: Normocephalic and atraumatic. Pupils are equal, round and reactive. The patient is wearing a mask in compliance with COVID-19 regulations. EXTREMITIES: Show no clubbing, no cyanosis, no edema. MUSCULOSKELETAL: Gait antalgic today favoring what appears to be the right lower extremity. Seated straight leg raising negative. Supine straight leg raising positive on the right. ASSESSMENT: 1. Symptomatic lumbar radiculopathy. 2. Spinal stenosis of lumbar spine. 3. Displacement of lumbar intervertebral disk with radiculopathy. 4. Lumbosacral spondylosis with radiculopathy. 5. Lumbar degeneration. 6. Chronic intractable pain. PLAN: 1. The patient returns today in followup visit to undergo lumbar epidural injection under fluoroscopic guidance to address 8/10 lumbar radicular pain. The patient has received authorization to undergo the procedure. She has contacted her neurosurgeon who will be implanting the spinal cord stimulator and they do not have any reason why the patient cannot undergo an injection at this juncture. The patient has been advised risks and benefits of the procedure, states understood and wished to proceed. 2. No medication changes made at today's visit. The patient will continue current medical therapy as prior prescribed. 3. We plan to see the patient back in followup visit on an as needed basis for possible next in the series of lumbar epidural injections. We are hopeful the patient will see good and prolonged benefit with today's procedure. PROCEDURE NOTE DESCRIPTION OF PROCEDURE: L5-S1 intralaminar epidural steroid injection under fluoroscopic guidance. After obtaining written consent, the patient was taken back to fluoroscopy suite, placed in prone position with pillow under abdomen to decrease lumbar lordosis. Skin overlying lumbosacral area prepped and draped in aseptic fashion. The lumbar intervertebral spaces were identified by AP fluoroscopy. Skin and subcutaneous tissue overlying target site of injection anesthetized with 3 mL of 1% lidocaine. A 20-gauge 3-1/2 inch Tuohy needle advanced under fluoroscopic guidance towards the epidural space using a paramedian approach. Epidural space identified using loss of resistance to air technique. After negative aspiration for heme or cerebrospinal fluid, 1 mL of Omnipaque injected. A lumbar epidurogram was confirmed using both AP and lateral fluoroscopy. After negative aspiration for [address] [address] PAIN MANAGEMENT CONSULTATION Name: LAYO AKERS Room #: REG [facility]#: [id number] Admission: 04/16/20 Attend Phys: Ryland Ponce DO Discharge: Date of : 39 Report #: [id number] heme or cerebrospinal fluid, 5 mL of a solution containing 2 mL 40 mg per mL, 80 mg total triamcinolone along with 3 mL of lidocaine 1% injected slowly. Needle retracted usp, flushed with 1 mL of 1% lidocaine, then removed. Sterile bandage placed over injection site. No new motor deficits present in the lower extremities following procedure. The patient tolerated the procedure well, carefully escorted to recovery room in stable condition. No apparent complications. After meeting our discharge criteria, the patient discharged home. <ELECTRONICALLY SIGNED> By: Ryland Ponce DO 04/17/20 1035 1429 1442 Ryland Ponce DO /nt
== END ==
LOC: PAIN 06:41
PROVIDERS: ATTEND Anesthesiology Pain Medicine
DX: M51.16 Intervertebral disc disorders with radiculopathy, lumbar region (principal); M48.061 Spinal stenosis, lumbar region without neurogenic claudication; G89.29 Other chronic pain; M19.90 Unspecified osteoarthritis, unspecified site

== ENCOUNTER → 2020-05-28 | Outpatient (CLI) | payer OTHER ==
[~2020-05-28] VITALS: Ht 147.3 cm; Wt 57.7 kg
--- NOTE | ~2020-05-28 | HPC ---
[facility] [address] [place] [address] PAIN MANAGEMENT CONSULTATION Name: LAYO AKERS Room #: REG [facility].#: [id number] Admission: 05/28/20 Attend Phys: Ryland Ponce DO Discharge: Date of : 39 Report #: [id number] THIS REPORT FOR: cc: Darcie Edwards MD, Hillary N. MD Johnson, James E. DO ~ DATE OF SERVICE: 05/28/2020 REFERRING PHYSICIAN: Dr. Darcie Edwards. CHIEF COMPLAINT: Low back pain, bilateral lower extremity pain with paresthesias, right greater than left. HISTORY OF PRESENT ILLNESS: As you know, the patient is a very pleasant 79-year-old female who has successfully completed his spinal cord stimulator trial implantation through our services in early 04/2020. She has now undergone implantation of a permanent spinal cord stimulator and is following up with us today 1-week postop for evaluation. She is indicating good efficacy with the device noting pain no greater than 3/10 and this is a surgical pain, not her typical low back and lower extremity symptoms. She is very pleased with response to the device to date and requires no reprogramming. She returns for evaluation from a wound standpoint. The patient is voicing no concerns about the wound himself. States that there have been healing, but are still somewhat achy. ALLERGIES: CEPHALEXIN, CEFAZOLIN AND CIPROFLOXACIN. CURRENT MEDICATIONS: Levothyroxine, ibuprofen, biotin, vitamin B6, MiraLax and vitamin D. SOCIAL HISTORY: The patient denies tobacco, alcohol, IV or illicit drug use. She is retired, retired years ago, unaccompanied today. IMAGING: No new imaging available. PQRS: The patient has known arthritic changes of the lumbar spine, bilateral hips, bilateral knees and shoulders. No rheumatoid arthritis. Placing current pain intensity at 3/10. She is not a fall risk, has not had a fall in last 3 months. She is not on blood thinners, but is treated for hypertension. She is not on chronic opioids, has a low opioid addiction potential. Pain impact is 29/70, moderate interference of daily activities secondary to pain. PHYSICAL EXAMINATION: VITAL SIGNS: Blood pressure 131/85, pulse 87, respiratory rate 20 and unlabored. The patient is 100% on room air. Height 4 feet 10 inches tall, weight 127.2 pounds, BMI calculated 26.6. [address] [address] PAIN MANAGEMENT CONSULTATION Name: LAYO AKERS Room #: REG [facility]#: [id number] Admission: 05/28/20 Attend Phys: Ryland Ponce DO Discharge: Date of : 39 Report #: [id number] GENERAL: Well-developed, well-nourished, well-hydrated 79-year-old female appearing stated age, pain is rated around 3/10. HEENT: Normocephalic and atraumatic. Pupils are round and responsive. The patient is wearing a mask in compliance with COVID-19 regulations. EXTREMITIES: Show no clubbing, no cyanosis, and no edema. MUSCULOSKELETAL: The patient has 2 incisions, one in the thoracolumbar area, which appears clean, dry and intact from bandaging standpoint, also has a wound and bandaging over the right upper buttock area where the pulse generator was implanted. These looked clean, dry and intact. ASSESSMENT: 1. Symptomatic lumbar radiculopathy. 2. Spinal stenosis of lumbar spine. 3. Displacement of lumbar intervertebral disk with radiculopathy. 4. Lumbosacral spondylosis with radiculopathy. 5. Lumbar degeneration. 6. Postsurgical pain. 7. Chronic intractable pain. PLAN: 1. The patient returns today in followup visit for the first week postop wound check. The patient states she is doing very well. There is some tenderness involving the incisions, but there has been no consistent drainage or concerns. There is no erythema, no increase in overall pain, no headache, chills, fever, night sweats, any concerning infectious findings. We have remove the bandaging over the thoracolumbar area and the buttock area. The incisions are clean, dry, intact and healing well. There is granulation tissue already noticeable. There is no erythema around the incisions themselves. 2. The patient and I discussed the wound findings today. I am pleased to see that she is doing very well. Her pain is well controlled with a cord stimulator and does not need adjustments in her programming at this time. We have plans to see the patient back in followup visit in 2 weeks for the second wound checks. 3. No medication changes made at today's visit. The patient will continue current medical therapy as prior prescribed. 4. We will see the patient back in followup visit in 2 weeks. At that time, if we need to make any programming adjustments, we will do so. I am pleased to see the patient is doing well. We will see her back in 2 weeks. By: 1344 1411 Ryland Ponce DO /nt
[2020-05-28 12:49] VITALS: BP 131/85
--- NOTE | 2020-05-28 12:53 | NUR ---
Pain Clinic Assessment: 1. History of Osteoarthritis: HIPS SPINE History of Rheumatoid Arthritis: DENIES 2. Height: 4 ft. 10 in. 147.3 cm. Weight: 127.2 lb. oz. 57.697 kg. Patient's BMI: 26.6 3. Vital Signs: BP: 131/85 Pulse: 87 Resp: 20 Temp: 02 Sat: 100 ECG Mon: 4. Pain Intensity: 3 5. Fall Risk: Dizziness: N Needs help standing or walking: N Fallen in the last 3 months: N Fall risk comments: 6. Patient on Blood Thinner: None 7. History of Hypertension: Y 8. Opioid Therapy greater than 6 weeks: N Opiate Contract Signed: 9. Risk Assessment Tool Provided: 0-LOW RISK 10. Functional Assessment Tool: 11. Recreational Drug Use: Never Drug Type: Tobacco Use: Former Smoker Tobacco Type: Amount or Packs/day: How Many Years: Alcohol Use: No Frequency: Quant:
--- NOTE | 2020-05-28 13:22 | NUR ---
pt here for post op week 1 checkup. Dressings removed. Incisions dry, clean and intact. No redness, swelling or drainage. Left KVNG.
== END ==
LOC: PAIN 10:21
PROVIDERS: ATTEND Anesthesiology Pain Medicine
DX: M51.16 Intervertebral disc disorders with radiculopathy, lumbar region (principal); M47.27 Other spondylosis with radiculopathy, lumbosacral region; M48.061 Spinal stenosis, lumbar region without neurogenic claudication; G89.4 Chronic pain syndrome; Z79.899 Other long term (current) drug therapy; Z79.891 Long term (current) use of opiate analgesic

== ENCOUNTER → 2020-08-06 | Outpatient (CLI) | payer OTHER ==
[~2020-08-06] VITALS: Ht 147.3 cm; Wt 58.0 kg
[~2020-08-06] MED LIST changes: +MEDROLDOSEPACK PO; +TRAMADOL HCL50 MG PO
--- NOTE | ~2020-08-06 | HPC ---
[address] [address] PAIN MANAGEMENT CONSULTATION Name: LAYO AKERS Room #: REG [facility].#: [id number] Admission: 08/06/20 Attend Phys: Ryland Ponce DO Discharge: Date of : 39 Report #: [id number] THIS REPORT FOR: cc: Darcie Edwards MD, Hillary N. MD Johnson, James E. DO ~ DOC #: [id number] cc: Luly Ponce DO DATE OF SERVICE: 08/06/2020 REFERRING PHYSICIAN: Luly Edwards. CHIEF COMPLAINT: Low back pain, bilateral lower extremity pain with paresthesias, right greater than left. HISTORY OF PRESENT ILLNESS: As you know, the patient is an 79-year-old female who suffers from chronic lumbar radiculopathy treated initially with epidural injections, which unfortunately lost efficacy. She went on to undergo a spinal cord stimulator trial implantation with 80% improvement in overall pain and has now had a permanent implant. Despite this implant, the patient is complaining of increasing pain. We have had the device commercial representative meet the patient today to make adjustments in the therapy as we believe she is over stimulating the area causing symptom progression. She returns to discuss options for treatment even with this adjustment placing current pain score of 8/10. She denies injury, trauma or any changes in medical history since her last visit. ALLERGIES: CEPHALEXIN, CEFAZOLIN AND CIPROFLOXACIN. CURRENT MEDICATIONS: Levothyroxine, ibuprofen, biotin, vitamin B6, MiraLax and vitamin D. SOCIAL HISTORY: The patient denies tobacco, alcohol or IV or illicit drug use. She is retired, retired years ago. She is unaccompanied at today's visit. IMAGING STUDIES: No new imaging available. PQRS: The patient has known arthritic changes of the lumbar spine, bilateral hips, bilateral knees and shoulders. She denies rheumatoid arthritis. She is placing pain today at 8/10. She is not at fall risk, has not had a fall in last 3 months. She is not on any blood thinners, but is treated for hypertension. She is on no opioid medications, has a low opioid addiction potential. Pain impact is 29/70, moderate interference of daily activities secondary to pain. PHYSICAL EXAMINATION: VITAL SIGNS: Blood pressure 157/92, pulse is 76, respiratory rate 16 and [facility] [address] [place] [address] PAIN MANAGEMENT CONSULTATION Name: LAYO AKERS Room #: REG [facility] M.Brielle.#: [id number] Admission: 08/06/20 Attend Phys: Ryland Ponce DO Discharge: Date of : 39 Report #: [id number] unlabored. The patient is 100% on room air. Height 4 feet 10 inches tall, weight 127.8 pounds, BMI calculated 26.7. GENERAL: Well-developed, well-nourished, well-hydrated 79-year-old female appearing her stated age, placing pain today at 8/10. HEENT: Normocephalic and atraumatic. Pupils are round. She is wearing a mask in compliance with COVID-19 regulations. EXTREMITIES: Show no clubbing, no cyanosis. No appreciable edema. MUSCULOSKELETAL: Lower extremity strength appears symmetrical, but deconditioned 5/5, intact to light touch from L1 through S2 dermatomes. Seated straight leg raising negative. Supine straight leg raising positive. Fabere's test is negative. Modified Gaenslen's positive for axial back pain. There does not appear to be radiation of symptoms with these maneuvers. Well-healed surgical scars overlying the pulse generator and the insertion site of the leads. ASSESSMENT: 1. Symptomatic lumbar radiculopathy. 2. Spinal stenosis of lumbar spine. 3. Displacement of lumbar intervertebral disk with radiculopathy. 4. Lumbosacral spondylosis with radiculopathy. 5. Lumbar degeneration. 6. Chronic intractable pain. PLAN: 1. The patient returns today in followup visit with increasing typical pain. She is now at a pain level of 8/10. There is concern the patient may be over stimulating the area which is a typical finding in individuals that are attempting to make adjustments in their spinal cord stimulator levels. We have made adjustments in the patient's device today and have recommended the patient delay any other or further adjustments in treatment until one week from today. We wish to determine whether or not with these adjustments or symptoms will return to with her baseline levels and the cord stimulator remote much more efficient and effective at a lower level of power. The patient is agreeable with this plan. We made those adjustments today. We will discuss this at followup visit in 1 week. 2. We have agreed to provide the patient a prescription of tramadol 50 mg dose 1 tablet p.o. b.i.d. p.r.n. pain. This is to be taken only when pain is intolerable. No reliance on this medication for prophylactic dosing. I have sent the prescription via e-scribe to local pharmacy. She can obtain these medications at her earliest convenience. I have advised the patient to watch for side effects of sleepiness, disorientation, confusion, mental slowing or constipation with their use. If she notes any side effects, discontinue immediately. 3. We plan to see the patient back in followup visit in 1 week. If at that time, the patient's pain remains at a level of 8/10, we could consider an epidural injection, though we will discuss with the patient. If she is not [facility] [address] [place] [address] PAIN MANAGEMENT CONSULTATION Name: LAYO AKERS Room #: REG [facility].Brielle.#: [id number] Admission: 08/06/20 Attend Phys: Ryland Ponce DO Discharge: Date of : 39 Report #: [id number] seeing benefit with a spinal cord stimulator and she continues to experience no benefit with an epidural injection, surgical options may be ultimately necessary. We will discuss this at our visit in 1 week. We are hopeful that the patient will see benefit with this cord stimulator she had in the past and will not have to continue more aggressive treatment options. 4. We plan to see the patient back in followup visit in 1 week. We will keep you apprised of her response to adjustments in the spinal cord stimulator and whether or not we will be moving forward with injections or sending the patient for surgical consultation. Time spent with the patient today reviewing pertinent imaging reviewing the recent studies, clinical notes, performing physical exam and correlating those physical exam to the medication documentation 11 minutes. Time spent in preparation for the appointment reviewing prescription monitoring systems, reviewing previous records and proposed options for treatment reviewing current medications 5 minutes. Time spent preparing and sending electronic prescriptions documentation of the visit and plan of treatment 7 minutes. Total time spent 23 minutes. DO HILARY DesirJ/ARNOLD By: [id number] Ryland Ponce DO /laurie
[2020-08-06 10:08] VITALS: BP 157/92
--- NOTE | 2020-08-06 10:30 | NUR ---
Pain Clinic Assessment: 1. History of Osteoarthritis: HIPS SPINE History of Rheumatoid Arthritis: DENIES 2. Height: 4 ft. 10 in. 147.3 cm. Weight: 127.8 lb. oz. 57.970 kg. Patient's BMI: 26.7 3. Vital Signs: BP: 157/92 Pulse: 76 Resp: 16 Temp: 02 Sat: 100 ECG Mon: 4. Pain Intensity: 8 5. Fall Risk: Dizziness: N Needs help standing or walking: N Fallen in the last 3 months: N Fall risk comments: 6. Patient on Blood Thinner: None 7. History of Hypertension: Y 8. Opioid Therapy greater than 6 weeks: N Opiate Contract Signed: 9. Risk Assessment Tool Provided: 0-LOW RISK 10. Functional Assessment Tool: 11. Recreational Drug Use: Never Drug Type: Tobacco Use: Former Smoker Tobacco Type: Amount or Packs/day: How Many Years: Alcohol Use: No Frequency: Quant:
== END ==
LOC: PAIN 06:52
PROVIDERS: ATTEND Anesthesiology Pain Medicine
DX: M51.16 Intervertebral disc disorders with radiculopathy, lumbar region (principal); M47.26 Other spondylosis with radiculopathy, lumbar region; G89.4 Chronic pain syndrome; M48.061 Spinal stenosis, lumbar region without neurogenic claudication; Z79.899 Other long term (current) drug therapy; Z79.891 Long term (current) use of opiate analgesic

== ENCOUNTER → 2020-08-13 | Outpatient (CLI) | payer OTHER ==
[~2020-08-13] VITALS: Ht 147.3 cm; Wt 57.5 kg
[2020-08-13 11:03] VITALS: BP 154/80
--- NOTE | 2020-08-13 11:11 | NUR ---
Pain Clinic Assessment: 1. History of Osteoarthritis: HIPS SPINE History of Rheumatoid Arthritis: DENIES 2. Height: 4 ft. 10 in. 147.3 cm. Weight: 126.8 lb. oz. 57.516 kg. Patient's BMI: 26.5 3. Vital Signs: BP: 154/80 Pulse: 74 Resp: 14 Temp: 02 Sat: 98 ECG Mon: 4. Pain Intensity: 8 5. Fall Risk: Dizziness: N Needs help standing or walking: N Fallen in the last 3 months: N Fall risk comments: 6. Patient on Blood Thinner: None 7. History of Hypertension: Y 8. Opioid Therapy greater than 6 weeks: N Opiate Contract Signed: 9. Risk Assessment Tool Provided: 0-LOW RISK 10. Functional Assessment Tool: 11. Recreational Drug Use: Never Drug Type: Tobacco Use: Former Smoker Tobacco Type: Amount or Packs/day: How Many Years: Alcohol Use: No Frequency: Quant:
--- NOTE | 2020-08-14 08:00 | HPC ---
[facility] [place] [address] PAIN MANAGEMENT CONSULTATION Name: LAYO AKERS Room #: REG [facility].#: [id number] Admission: 08/13/20 Attend Phys: Ryland Ponce DO Discharge: Date of : 39 Report #: [id number] THIS REPORT FOR: cc: Darcie Edwards MD,Ryland Bonilla MD, DO ~ DOC #: [id number] cc: Darcie Ponce DO DATE OF SERVICE: 08/13/2020 REFERRING PHYSICIAN: aDrcie Edwards. CHIEF COMPLAINT: Low back pain, bilateral lower extremity pain with paresthesias. HISTORY OF PRESENT ILLNESS: As you know, the patient is a very pleasant 79-year-old female returning in followup visit with continued pain for which she gives a number of 8/10. She returns today in followup visit to undergo lumbar epidural injection under fluoroscopic guidance. We made adjustments in the patient's spinal cord stimulator, pulse rate and programming at her last visit. She has noted improvement, but continues to experience pain level of 8/10. She returns today in followup visit requesting a lumbar epidural injection in hopes of improving pain further. She has denied any specific injury or trauma. She reports good efficacy with epidurals in the past. She indicates that she has been somewhat sedentary over the last couple of days due to increased pain. She is hopeful that this injection will allow her to return to her baseline level of activity. ALLERGIES: CEPHALEXIN, CEFAZOLIN AND CIPROFLOXACIN. CURRENT MEDICATIONS: Levothyroxine, ibuprofen, biotin, vitamin B6, vitamin D, and MiraLax. SOCIAL HISTORY: The patient continues to deny tobacco, alcohol, IV or illicit drug use. She is retired, retired years ago, unaccompanied today. IMAGING: No new imaging available. PQRS: The patient has known arthritic changes of lumbar spine, bilateral hips, bilateral knees, bilateral shoulders, and bilateral hands. No rheumatoid arthritis. Pain intensity today is rated at 8/10, not a fall risk, does not have fall in last 3 months, not on blood thinners, but she is treated for hypertension. She is not on chronic opioids, has a low opioid addiction potential. Pain impact 29/70, moderate interference of daily activities secondary to pain. [address] [address] PAIN MANAGEMENT CONSULTATION Name: LAYO AKERS Room #: REG [facility]#: [id number] Admission: 08/13/20 Attend Phys: Ryland Ponce DO Discharge: Date of : 39 Report #: [id number] PHYSICAL EXAMINATION: VITAL SIGNS: Blood pressure 154/80, pulse 74, respiratory rate 14 and unlabored. The patient 98% on room air. Height 4 feet 10 inches tall, weight 126.8 pounds, BMI calculated 26.5. GENERAL: Well-developed, well-nourished, well-hydrated 79-year-old female appearing stated age, pain is rated today 8/10. HEENT: Normocephalic, atraumatic. Speech is fluent. She is wearing a mask in compliance with COVID-19 regulations. EXTREMITIES: Show no clubbing, no cyanosis. No appreciable edema. MUSCULOSKELETAL: Lower extremity strength remains symmetrical today 5/5. Slight loss of strength is noted due to pain generation on the right. Seated straight leg raising is mildly positive on the right. Supine straight leg raising is positive. Fabere's test negative. Modified Gaenslen's positive for axial low back pain. ASSESSMENT: 1. Symptomatic lumbar radiculopathy. 2. Spinal stenosis of lumbar spine. 3. Displacement of lumbar intervertebral disk with radiculopathy. 4. Lumbosacral spondylosis with radiculopathy. 5. Lumbar degeneration. 6. Chronic intractable pain. PLAN: 1. The patient returns today in followup visit to undergo lumbar epidural injection under fluoroscopic guidance to address her 8/10 pain. The patient has been advised risks and benefits of this procedure. These risks include but are not necessarily limited to bleeding, bruising, infection, worsening pain, no relief of pain, also risk of temporary or permanent muscle weakness, temporary or permanent nerve damage, possible paralysis, post-dural puncture headache and . The patient states understood and wished to proceed. 2. No medication changes made at today's visit. The patient will continue current medical therapy as prior prescribed. 3. We will plan to see the patient back in followup visit on an as needed basis for the next in the series of epidural injections. We are hopeful the patient will see good and prolonged benefit with today's procedure. PROCEDURE NOTE DESCRIPTION OF PROCEDURE: L5-S1 interlaminar epidural steroid injection under fluoroscopic guidance. After obtaining written consent, the patient was taken back to fluoroscopy suite, placed in prone position with pillow under abdomen to decrease lumbar lordosis. Skin overlying lumbosacral area then prepped and draped in aseptic [address] [address] PAIN MANAGEMENT CONSULTATION Name: LAYO AKERS [facility] [id number] Admission: 08/13/20 Attend Phys: Ryland Ponce DO Discharge: Date of : 39 Report #: [id number] fashion. The L5-S1 vertebral interspace identified by AP fluoroscopy. Skin and subcutaneous tissue overlying target site injection anesthetized with 3 mL 1% lidocaine. A 20 gauge 3-1/2 inch Tuohy needle advanced under fluoroscopic guidance towards the epidural space using a parasagittal approach. Epidural space identified using loss of resistance to air technique. After negative aspiration for heme or cerebrospinal fluid, 1 mL of Omnipaque injected. Lumbar epidurogram was confirmed using both AP and lateral fluoroscopy. After negative aspiration for heme or cerebrospinal fluid, 5 mL solution containing 2 mL 40 mg per mL 80 mg total triamcinolone along with 3 mL of lidocaine 1% is injected slowly. Needle retracted approximately long term flushed with 1 mL of 1% lidocaine, then removed. Sterile bandage placed over injection site. No new motor deficits present in the lower extremities following procedure. The patient tolerated the procedure well, carefully escorted to recovery room in stable condition. No apparent complications. After meeting discharge criteria, the patient discharged home. Ryland Ponce DO JEJ/AMI <ELECTRONICALLY SIGNED> By: Ryland Ponce DO 08/14/20 08 1205 25 Ryland Ponce DO /nt
== END | disposition home or self-care (01) ==
LOC: PAIN 10:15
PROVIDERS: ATTEND Anesthesiology Pain Medicine
DX: M51.16 Intervertebral disc disorders with radiculopathy, lumbar region (principal); M48.061 Spinal stenosis, lumbar region without neurogenic claudication; M47.27 Other spondylosis with radiculopathy, lumbosacral region; G89.29 Other chronic pain; I10 Essential (primary) hypertension; M19.90 Unspecified osteoarthritis, unspecified site; Z98.890 Other specified postprocedural states; Z79.899 Other long term (current) drug therapy; Z88.8 Allergy status to other drugs, medicaments and biological substances

== ENCOUNTER → 2020-12-25 | Outpatient (CLI) | payer OTHER ==
[~2020-12-25] VITALS: Ht 149.9 cm; Wt 55.3 kg
--- NOTE | ~2020-12-25 | HPC ---
[facility] [place] [address] PAIN MANAGEMENT CONSULTATION Name: LAYO AKERS Room #: REG [facility].#: [id number] Admission: 12/25/20 Attend Phys: Ryland Ponce DO Discharge: Date of : 39 Report #: [id number] THIS REPORT FOR: cc: Darcie Edwards MD, Hillary N. MD Johnson, James E. DO ~ cc: Darcie Edwards MD DATE OF SERVICE: 12/25/2020 REFERRING PHYSICIAN: Darcie Edwards M.D. CHIEF COMPLAINT: Low back pain, bilateral lower extremity pain with paresthesias, right greater than left. HISTORY OF PRESENT ILLNESS: As you know, the patient is a very pleasant 80-year-old female who suffers from chronic lumbar radiculopathy, treated with epidural injections and medication management. She returns today in followup visit having made adjustments in her spinal cord stimulator with some improvement in symptoms, but requesting the next in the series of epidural injections to build on success. She is placing pain score at 7/10. She describes the pain as beginning in the low back, buttock area, radiating down the legs. She describes the pain as chronic, aching, stiffness, numbness and tingling when describing symptoms. She indicates pain is exacerbated with standing, improves with sitting, medications, epidural injections and adjustments in her cord stimulator. Most recent epidural injection gave her 100% improvement in overall pain lasting for nearly 3 months. Symptoms reoccurred without inciting injury or trauma. The patient has had no changes in medication management that would preclude her from having any epidural injection provided today. ALLERGIES: CEPHALEXIN, CIPROFLOXACIN AND CEFAZOLIN. CURRENT MEDICATIONS: Tramadol, levothyroxine, ibuprofen, biotin, vitamin B6, MiraLax, cholecalciferol. SOCIAL HISTORY: The patient denies tobacco, alcohol, or IV or illicit drug use. She is retired, retired years ago, unaccompanied today. IMAGING: No new imaging available. PQRS: The patient has known arthritic changes of lumbar spine, bilateral hips, bilateral knees and shoulders. No rheumatoid arthritis. She is placing pain intensity today at 7/10. She is not a fall risk, has not had a fall in the last 3 months. She is not on blood thinners, but is treated for hypertension. She is not on chronic opioids, has a low opioid addiction potential based on assessment tool. Pain impact is 29/70, moderate interference of daily [facility] [address] [place] [address] PAIN MANAGEMENT CONSULTATION Name: LAYO AKERS Room #: REG [facility]#: [id number] Admission: 12/25/20 Attend Phys: Ryland Ponce DO Discharge: Date of : 39 Report #: [id number] activities secondary to pain. PHYSICAL EXAMINATION: VITAL SIGNS: Blood pressure 129/75, pulse is 90, respiratory rate 16 and unlabored. The patient is 96% on room air. Height 4 feet 11 inches tall, weight 122 pounds, BMI calculated 24.6. GENERAL: Well-developed, well-nourished, well-hydrated 80-year-old female, appearing stated age, pain is rated today at 7/10. HEENT: Normocephalic, atraumatic. Pupils are round. She is wearing a facemask in compliance with [facility] regulations and hospital policy. EXTREMITIES: Show no clubbing, no cyanosis, no edema. MUSCULOSKELETAL: Seated straight leg raising is negative. Supine straight leg raising is positive. DOT test is negative. Modified Gaenslen's positive for axial back pain. Gait appears mildly antalgic favoring left lower extremity over right. ASSESSMENT: 1. Symptomatic lumbar radiculopathy. 2. Spinal stenosis of lumbar spine. 3. Displacement of lumbar intervertebral disk with radiculopathy. 4. Lumbosacral spondylosis with radiculopathy. 5. Lumbar degeneration. 6. Chronic intractable pain. PLAN: 1. The patient returns today in followup visit having requested next in the series of lumbar epidural injections under fluoroscopic guidance. The patient reports previous lumbar epidural injection gave 100% improvement in overall pain lasting for nearly 3 months. Unfortunately, her symptoms have begun to reoccur. She returns today in followup visit for the next in the series of lumbar epidural injections. She has made adjustments in her spinal cord stimulator and have noted some improvement in symptoms, but is requesting the epidural injection to build on that success. She has been advised risks and benefits of the procedure, states understood and wished to proceed. 2. No medication changes made at today's visit. The patient will continue current medical therapy as prior prescribed. 3. Plan to see the patient back in followup visit on an as-needed basis for the next in the series of epidural injections. I am hopeful the patient will once again see good and prolonged improvement in symptoms with the combination of epidural injections and adjustments in the spinal cord stimulator. PROCEDURE NOTE: DESCRIPTION OF PROCEDURE: L5-S1 left paramedian epidural steroid injection under fluoroscopic guidance. [address] [address] PAIN MANAGEMENT CONSULTATION Name: LAYO AKERS Room #: REG [facility]#: [id number] Admission: 12/25/20 Attend Phys: Ryland Ponce DO Discharge: Date of : 39 Report #: [id number] After obtaining written consent, the patient was taken back to fluoroscopy suite, placed in prone position with pillow under abdomen to decrease lumbar lordosis. Skin overlying lumbosacral area prepped and draped in aseptic fashion. The L5-S1 vertebral interspace identified by AP fluoroscopy. Skin and subcutaneous tissue overlying target site injection anesthetized with 3 mL 1% lidocaine. A 20 gauge 3-1/2 inch Tuohy needle advanced under fluoroscopic guidance towards the epidural space using a left paramedian approach. Epidural space identified using loss of resistance to air technique. After negative aspiration for heme or cerebrospinal fluid, 1 mL of Omnipaque injected. Lumbar epidurogram was confirmed using both AP and oblique fluoroscopy. After negative aspiration for heme or cerebrospinal fluid, 5 mL of a solution containing 2 mL 40 mg per mL 80 mg total triamcinolone along with 3 mL of lidocaine 1% injected slowly. Needle retracted fpc, flushed with 1 mL of 1% lidocaine, then removed. Sterile bandage placed over injection site. No new motor deficits present in lower extremity following procedure. The patient tolerated the procedure well, carefully escorted to recovery room in stable condition. No apparent complications. After meeting discharge criteria, the patient discharged home. By: [id number] Ryland Ponce DO /nt
[2020-12-25 09:13] VITALS: BP 129/75
--- NOTE | 2020-12-25 09:17 | NUR ---
Pain Clinic Assessment: 1. History of Osteoarthritis: HIPS SPINE History of Rheumatoid Arthritis: DENIES 2. Height: 4 ft. 11 in. 149.9 cm. Weight: 122.0 lb. oz. 55.339 kg. Patient's BMI: 24.6 3. Vital Signs: BP: 129/75 Pulse: 90 Resp: 16 Temp: 02 Sat: 96 ECG Mon: 4. Pain Intensity: 7 5. Fall Risk: Dizziness: N Needs help standing or walking: N Fallen in the last 3 months: N Fall risk comments: 6. Patient on Blood Thinner: None 7. History of Hypertension: Y 8. Opioid Therapy greater than 6 weeks: N Opiate Contract Signed: 9. Risk Assessment Tool Provided: 0-LOW RISK 10. Functional Assessment Tool: 11. Recreational Drug Use: Never Drug Type: Tobacco Use: Former Smoker Tobacco Type: Amount or Packs/day: How Many Years: Alcohol Use: No Frequency: Quant:
== END | disposition home or self-care (01) ==
LOC: PAIN 08:52
PROVIDERS: ATTEND Anesthesiology Pain Medicine
DX: M51.16 Intervertebral disc disorders with radiculopathy, lumbar region (principal); M47.27 Other spondylosis with radiculopathy, lumbosacral region; M48.061 Spinal stenosis, lumbar region without neurogenic claudication; G89.29 Other chronic pain; I10 Essential (primary) hypertension; M19.90 Unspecified osteoarthritis, unspecified site; Z98.890 Other specified postprocedural states; Z79.899 Other long term (current) drug therapy; Z88.8 Allergy status to other drugs, medicaments and biological substances